=== PATIENT | female | born 1940 | race Caucasian/White ===

== ENCOUNTER 2024-04-11 08:53 | Inpatient (IN) ==
--- NOTE | 2024-02-20 13:02 | PAT Medication Instructions ---
Medication Instructions Date of Service February 20, 2024 Home Medications allopurinol 300 mg tablet 300 mg PO BID PRN gout flare up gabapentin 100 mg capsule 200 mg PO TID pantoprazole 40 mg tablet,delayed release 40 mg PO UD PRN Acid Reflux valsartan 320 mg tablet 320 mg PO QAM amlodipine 10 mg tablet 5 mg PO QAM hydrochlorothiazide 50 mg tablet 50 mg PO QAM ketoconazole 2 % topical cream 1 applic topical BID PRN Skin Irritation meclizine 25 mg tablet 25 mg PO DAILY PRN Vertigo methimazole 5 mg tablet 5 mg PO QAM metoprolol succinate 25 mg tablet,extended release 24 hr 12.5 mg PO QAM MEDICATION INSTRUCTIONS: Continue as directed ketoconazole 2 % topical cream 1 applic topical BID PRN Skin Irritation (do not apply near surgical area after bathing prior to surgery) DO NOT take the morning of surgery hydrochlorothiazide 50 mg tablet 50 mg PO QAM valsartan 320 mg tablet 320 mg PO QAM Take morning of surgery With a small sip of water, OTHERWISE NOTHING TO EAT OR DRINK AFTER MIDNIGHT: allopurinol 300 mg tablet 300 mg PO BID PRN gout flare up gabapentin 100 mg capsule 200 mg PO TID methimazole 5 mg tablet 5 mg PO QAM metoprolol succinate 25 mg tablet,extended release 24 hr 12.5 mg PO QAM pantoprazole 40 mg tablet,delayed release 40 mg PO UD PRN Acid Reflux amlodipine 10 mg tablet 5 mg PO QAM meclizine 25 mg tablet 25 mg PO DAILY PRN Vertigo Take evening before surgery allopurinol 300 mg tablet 300 mg PO BID PRN gout flare up gabapentin 100 mg capsule 200 mg PO TID Other Notes If you have any questions please call us at [phone] or [phone] or [phone] or [phone]
--- NOTE | 2024-03-05 12:26 | Anesthesiology Consultation ---
Date of Service March 05, 2024 Assessment & Plan (1) Encounter for pre-operative examination: - Infectious disease screening: Per assessment on 03/05/24: No known recent infectious disease contacts or current infectious disease symptoms. - Outpatient joint assessment: Per surgeon's paperwork, plan for patient to be done through with overnight stay post-operatively (OR made aware). If surgeon requests review for outpatient joint pathway, patient would need to be further evaluated by anesthesia team for ultimate determination. 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 On physical exam of right LE/ankle at PAT visit 03/05/24: no skin discoloration, no erythema, no warmth, no edema. Edgar's sign negative. Very mild right ankle/LE swelling compared to left. Vitals stable/unremarkable. Patient denies cardiopulmonary complaints- at baseline. Discussed red flag symptoms associated with blood clots and advised patient to proceed to ER if development of these occur. Note written to PCP regarding RLE/right ankle swelling- Awaiting response + surgeon-ordered PCP preop evaluation (Nathan Hernandez PAC/[facility]OHNS[facility], appt date TBD). Chart Review Chart Review: Patient seen in Pre Admission Testing Teaching & Discussion Pre-Anesthesia Teaching/Discussion Notes: Instructed NPO after midnight before surgery,except medications with 15 cc of water. Medication instructions provided according to the [facility] guidelines. History Surgery Operation Date: 04/11/24 09:15 Proposed Procedures p OP: Left Anterior Total Hip Replacement - Parth Shukla MD Height/Weight Height: 5 ft 7 in Weight: 103.6 kg Allergies Allergy/AdvReac Type Severity Reaction Status Date / Time hydrocodone AdvReac Intermediate Diarrhea Verified 02/29/24 16:08 codeine AdvReac Mild Nausea, Verified 02/29/24 16:08 vomiting morphine AdvReac Mild Nausea, Verified 02/29/24 16:08 vomiting Penicillins AdvReac Mild Rash Verified 02/29/24 16:08 Medications Home Medications Medication Instructions Recorded Confirmed Last Taken allopurinol 300 mg tablet 300 mg PO BID PRN gout flare up 07/10/18 02/20/24 07/25/18 08:00 gabapentin 100 mg capsule 200 mg PO TID 07/10/18 02/20/24 07/25/18 08:00 pantoprazole 40 mg tablet,delayed 40 mg PO UD PRN Acid Reflux 07/10/18 02/20/24 Unknown release valsartan 320 mg tablet 320 mg PO QAM 07/10/18 02/20/24 Unknown amlodipine 10 mg tablet 5 mg PO QAM 02/20/24 02/20/24 Unknown hydrochlorothiazide 50 mg tablet 50 mg PO QAM 02/20/24 02/20/24 Unknown ketoconazole 2 % topical cream 1 applic topical BID PRN Skin 02/20/24 02/20/24 Unknown Irritation meclizine 25 mg tablet 25 mg PO DAILY PRN Vertigo 02/20/24 02/20/24 Unknown methimazole 5 mg tablet 5 mg PO QAM 02/20/24 02/20/24 Unknown metoprolol succinate 25 mg 12.5 mg PO QAM 02/20/24 02/20/24 Unknown tablet,extended release 24 hr Past Medical History Medical History 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, asymptomatic Chronic anemia Chronic kidney disease Degenerative arthritis of left knee GERD (gastroesophageal reflux disease) Hx of gout Hypertension Hyperthyroidism Neuropathy Feet Obesity Osteoarthritis Exercise / Class Metabolic Activity III < 4 Walking/Shop/Light housework Past Family History Family History Sister Family history of reaction to anesthesia SEVERE NAUAEA AND VOMITING Son Family history of diabetes mellitus Mother Family hx of colon cancer Past Surgical History Surgical History H/O colonoscopy with polypectomy History of cataract surgery R/L History of cholecystectomy History of esophagogastroduodenoscopy (EGD) History of hysterectomy Total History of tonsillectomy History of tooth extraction History of total hip arthroplasty Right History of total knee replacement R/L Right TKA (07/26/18): SAB at L4-5 + regional at [facility] History of uterine suspension procedure X2 Nausea and vomiting after administration of anesthetic agent Past Anesthesia History No Family Hx of Anesthesia Complications and Other (Slow to wake, Awareness with Right TKA) History of PONV No Hx of Motion Sickness and History of PONV Social History Smoking Status: Former smoker Do You Dip or Chew Tobacco: No Smoking End Date: Quit 30+ years ago Hx Alcohol Use: No Hx Substance Use: No substance use type: does not use Review of Systems Patient denies chest pain, shortness of breath, dyspnea on exertion, fever, chills, cough, wheezing, palpitations. Physical Exam Vital Signs BP 135/75 P 47 - chronic bradycardia r/t beta catalino, asymptomatic TEMP 97.5 SP02 98%RA RESP 18 Physical Full cervical extension range of motion. Full TMJ range of motion. TMD 3.5 finger breaths Mallampati Score 3 Dentition: missing molars Lungs: clear throughout to auscultation Cardiac: regular rate and rhythm, no murmurs noted Spine: normal Carotid arteries: negative bruit Lower Extremities: no skin discoloration, no erythema, no warmth, no edema. Edgar's sign negative. Very mild right ankle/LE swelling compared to left. Lab Results Anesthesia Preop Results Results Anesthesia Widget: WBC 6.14 K/ul (4.8-10.8) 03/05/24 Hgb 10.3 g/dl (12.0-16.0) L 03/05/24 Hct 31.6 % (37.0-47.0) L 03/05/24 Plt 236 K/uL (130-400) 03/05/24 Na 140 mmol/L (136-145) 03/05/24 K 3.7 mmol/L (3.5-5.1) 03/05/24 Cl 105 mmol/L (98-107) 03/05/24 CO2 29 mmol/L (21-32) 03/05/24 BUN 26 mg/dl (6-23) H 03/05/24 Creat 1.20 mg/dl (0.6-1.2) 03/05/24 Glucose Level 99 mg/dl (70-99(Fasting)) 03/05/24 PT 10.3 Seconds (9.0-12.0) 03/05/24 PTT 25 Seconds (21-31) 03/05/24 INR 0.9 (0.9-1.1) 03/05/24 Urine Color Yellow 03/05/24 Urine Appearance Cloudy (Clear) A 03/05/24 Urine pH 5.5 (4.5-7.5) 03/05/24 Urine Specific [place] 1.013 (1.000-1.030) 03/05/24 Urine Protein Negative (Negative) 03/05/24 Urine Glucose (UA) Negative (Negative) 03/05/24 Urine Ketones Negative (Negative) 03/05/24 Urine Blood Negative (Negative) 03/05/24 Urine Nitrite Negative (Negative) 03/05/24 Urine Bilirubin Negative (Negative) 03/05/24 Urine Urobilinogen Negative (Negative) 03/05/24 Urine Leukocyte Esterase Trace (Negative) H 03/05/24 Urine WBC (Auto) 0-5 /hpf (0-5) 03/05/24 Urine RBC (Auto) 0-2 /hpf (0-2) 03/05/24 Urine Hyaline Casts (Auto) 0-2 /lpf (0-2) 03/05/24 Urine Epithelial Cells (Auto) 3-5 /hpf (0-2) H 03/05/24 Urine Bacteria (Auto) None Seen (None Seen) 03/05/24 Blood Type O Positive 03/05/24 Antibody Screen NEGATIVE 03/05/24 Testing Electrocardiogram Date: 06/21/23 Sinus bradycardia with first-degree AV block at 55 bpm. RBBB. Chest X-Ray Date: 06/21/23 Mild cardiomegaly. No consolidation, pleural effusion or pneumothorax. Right shoulder impingement noted. Impression: No acute abnormality. Echocardiogram Date: 05/07/19 LVEF 55-59%. Borderline increased concentric LV wall thickness. No significant valvular disease. Inconclusive diastolic function.
--- NOTE | 2024-04-10 08:09 | History & Physical Report ---
Date of Service April 10, 2024 Assessment & Plan (1) Degenerative joint disease of left hip: Plan: Left total hip replacement direct anterior approach admission patient prefers inpatient rehab [facility] History of Present Illness Chief Complaint: Left hip pain Primary Care Provider: Mukesh Cox MD Patient is an 83-year-old female with a history of osteoarthritis of the lower extremities who is previously status post right total hip replacement and left total knee replacement in the past which have been successful. She now presents with greater than 1 year history of left hip and groin pain. The pain is associated with marked decrease in range of motion and limited standing and walking tolerance. She has tried and failed both intra-articular injections and physical therapy. She has radiographic evidence of advanced arthritis of the hip and is admitted for elective hip replacement surgery. Allergies Allergy/AdvReac Type Severity Reaction Status Date / Time hydrocodone AdvReac Intermediate Diarrhea Verified 02/29/24 16:08 codeine AdvReac Mild Nausea, Verified 02/29/24 16:08 vomiting morphine AdvReac Mild Nausea, Verified 02/29/24 16:08 vomiting Penicillins AdvReac Mild Rash Verified 02/29/24 16:08 Home Medications Medication Instructions Recorded Confirmed Type allopurinol 300 mg tablet 300 mg PO BID PRN gout flare up 07/10/18 02/20/24 History gabapentin 100 mg capsule 200 mg PO TID 07/10/18 02/20/24 History pantoprazole 40 mg tablet,delayed 40 mg PO UD PRN Acid Reflux 07/10/18 02/20/24 History release valsartan 320 mg tablet 320 mg PO QAM 07/10/18 02/20/24 History amlodipine 10 mg tablet 5 mg PO QAM 02/20/24 02/20/24 History hydrochlorothiazide 50 mg tablet 50 mg PO QAM 02/20/24 02/20/24 History ketoconazole 2 % topical cream 1 applic topical BID PRN Skin 02/20/24 02/20/24 History Irritation meclizine 25 mg tablet 25 mg PO DAILY PRN Vertigo 02/20/24 02/20/24 History methimazole 5 mg tablet 5 mg PO QAM 02/20/24 02/20/24 History metoprolol succinate 25 mg 12.5 mg PO QAM 02/20/24 02/20/24 History tablet,extended release 24 hr Past Med/Surg History Problem List (Updated 04/10/24 @ 08:09 by Parth Shukla MD) Degenerative joint disease of left hip Encounter for pre-operative examination Medical History Chronic anemia Hyperthyroidism Neuropathy Feet Degenerative arthritis of left knee 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, asymptomatic Hx of gout Obesity Osteoarthritis Chronic kidney disease GERD (gastroesophageal reflux disease) Hypertension Surgical History History of esophagogastroduodenoscopy (EGD) H/O colonoscopy with polypectomy History of tonsillectomy History of tooth extraction History of cataract surgery R/L Nausea and vomiting after administration of anesthetic agent History of uterine suspension procedure X2 History of cholecystectomy History of hysterectomy Total History of total knee replacement R/L Right TKA (07/26/18): SAB at L4-5 + regional at [facility] History of total hip arthroplasty Right Family History Sister Family history of reaction to anesthesia SEVERE NAUAEA AND VOMITING Son Family history of diabetes mellitus Mother Family hx of colon cancer Social History Smoking Status: Former smoker Tobacco Type: Cigarettes Smoking End Date: Quit 30+ years ago; Second Hand Exposure: Yes (in the past); Do You Dip or Chew Tobacco: No; Hx Alcohol Use: No Hx Substance Use: No Preferred Language: Surinamese Communication Ability: Effective Documentation Manager Required: No Beliefs That Will Affect Care: Latter-Day Latter-Day Beliefs: amish Current Living Situation: Alone Feels Safe at Home: Yes Safety Concerns: Feels Safe At This Time Assistive Devices: Glasses Assistive Devices Comment: reading glasses Review of Systems Review of Systems: Hip and groin pain Physical Exam Physical Exam: Weight 102 kg BMI 35 General: Overweight female who appears to be her stated age. HEENT: NCAT, EOMI, PERRLA. Neck: Negative bruits Heart: Sinus bradycardia no murmurs or gallops Lungs: Breath sounds clear and present in all avitia Abdomen: Obese soft nontender bowel sounds positive Extremities: The left hip is 4 mm shorter than the right passive range of motion is 5 to 85 degrees flexion -10 degrees internal rotation all which reproduces groin pain. Neurological and vascular: Intact Results & Data Results & Data Vital Signs (Past 12 Hours) Blood pressure 126/66 Pulse 60
[~2024-04-11 08:53] MED LIST: BUPIVACAINE 0.5 % 5 MG/1 ML PF 10ML VIAL ONE
[2024-04-11] MEDS ORDERED: KETAMINE HCL 10MG/ML SYR ONE (09:44)
[2024-04-11] MEDS ORDERED: MIDAZOLAM HCL 1 MG/ML 2ML VIAL ONE (09:44)
[2024-04-11] MEDS ORDERED: ONDANSETRON INJ 2 MG/ML 2 ML VIAL ONE (09:45)
[2024-04-11] MEDS ORDERED: LIDOCAINE 2% 2 ML VIAL/AMP(20MG/ML) INFIL ONE (09:45)
[2024-04-11] MEDS ORDERED: GLYCOPYRROLATE 0.2 MG/ML VIAL ONE (09:45)
[2024-04-11] MEDS ORDERED: KETOROLAC 30 MG/ML VIAL ONE (09:45)
[2024-04-11] MEDS ORDERED: PROPOFOL IV EMULSION 10 MG/ML 20 ML VIAL IV ONE (09:45)
[2024-04-11] MEDS: LR 500ML BOLUS, THEN 15ML/HR IV SCH (09:58)
[2024-04-11] MEDS: CeleBREX 200 MG CAP PO SCH (09:59)
[2024-04-11] MEDS: ACETAMINOPHEN 500 MG TAB PO SCH (09:59)
[2024-04-11] MEDS: GABAPENTIN 300 MG CAP PO SCH (09:59)
[2024-04-11] MEDS: METOCLOPRAMIDE HCL 10 MG TABLET PO SCH (10:00)
[2024-04-11] MEDS: LR 60ML/HR IV SCH (10:00)
[2024-04-11] MEDS: dexAMETHasone**PF** 10 MG/ML VIAL IV SCH (10:00)
[2024-04-11] MEDS: FAMOTIDINE 20 MG TAB PO SCH (10:00)
[2024-04-11] MEDS: traMADol HCL 50 MG TABLET PO SCH (10:01)
[2024-04-11] MEDS ORDERED: ATROPINE SULFATE 0.1 MG/ML 10ML SYR IV PRN (10:25)
[2024-04-11] MEDS ORDERED: ONDANSETRON INJ 2 MG/ML 2 ML VIAL IV PRN ×2 (10:25→15:41)
[2024-04-11] MEDS ORDERED: ePHEDrine sulfate 50 MG/ML AMP IV PRN (10:25)
[2024-04-11] MEDS ORDERED: PROMETHAZINE HCL 6.25 MG in SODIUM CHLORIDE 0.9% 50 ML IV PRN (10:25)
--- NOTE | 2024-04-11 10:36 | History & Physical Bridge Note ---
Date of Service April 11, 2024 History & Physical Bridge Note I have examined the patient, reviewed the History & Physical and in the interval since the performance of the History & Physical I have noted the following changes of clinical significance: no changes noted
[2024-04-11] MEDS: TRANEXAMIC ACID 1,000 MG **IV Pre-op IV SCH (12:02)
[2024-04-11] MEDS: ceFAZolin 2000MG 2,000 MG/15 ML SYR IV SCH ×2 (12:10→19:51)
--- OUTSIDE RECORDS SUMMARY | 2024-04-11 12:34 | External Medical Summary | Summary of Care ---
Author Name Unknown Organization [facility] Address [address] [place] [address] Phone [phone] Care Team Providers Care Pheresis Nurse Name Role Phone Nathan Hernandez PA-C Primary Care Provider [phone] Reason for Visit * Reason Onset Date Comments Test Results 04/05/2024 Encounter Details Date Type Department Care Team ([facility] Contact Info) Description 04/05/2024 Telephone Family [facility] [address] [place] [address] Nathan Hernandez PA-C [address] [place] [address] Test Results Allergies Active Allergy Reactions Criticality Noted Date Comments Codeine Nausea/vomiting 08/22/2014 Morphine And Codeine 08/31/2009 Upset stomach, vomiting Penicillins 05/29/2001 documented as of this encounter (statuses as of 04/08/2024) Medications Medication Sig Dispensed Refills Start Date End Date Status Multiple Vitamins-Minerals (HAIR SKIN AND NAILS FORMULA) TABS Take 1 Tab by mouth daily. Active methIMAzole 5 MG Oral Tablet (Tapazole)Indication s:Hyperthyroidism Take 1 Tablet by mouth daily. 90 Tablet 5 08/10/2021 Active Meclizine HCl 25 MG Oral Tablet (Antivert) Take by mouth 1 Tablet every 8 hours as needed for Dizziness. 30 Tablet 03/06/2022 Active Allopurinol 100 MG Oral Tablet (Zyloprim)Indication s:Elevated uric acid in blood Take 1 Tablet (100 mg) by mouth in the morning. 30 Tablet 11 07/29/2022 Active Cholestyramine 4 GM Oral Packet (Questran) Take 1 Packet by mouth in the morning and 1 Packet before bedtime. Mix with water and drink before a meal.. 180 Packet 1 02/13/2023 Active Pantoprazole Sodium 40 MG Oral Tablet Delayed Release (Protonix) Take 1 Tablet by mouth daily as needed for Indigestion. States only takes as needed 90 Tablet 5 05/09/2023 Active Tretinoin 0.1 % External Cream APPLY TO AFFECTED AREA ON FACE TOPICALLY AT BEDTIME 45 g 7 07/31/2023 Active Valsartan 320 MG Oral Tablet (Diovan)Indications: Essential hypertension with goal blood pressure less than 140/90 Take 1 Tablet by mouth in the morning. 90 Tablet 2 07/27/2023 Active Gabapentin 100 MG Oral Capsule (Neurontin)Indicatio ns:Neuropathy,DDD (degenerative disc disease), lumbar TAKE 2 CAPSULES THREE TIMES A DAY 84 Capsule 10/25/2023 Active amLODIPine Besylate 10 MG Oral Tablet (Norvasc)Indications :HTN, goal below 140/90 TAKE ONE-HALF (1/2) TABLET DAILY 45 Tablet 1 10/19/2023 Active hydroCHLOROthiazide 50 MG Oral Tablet (Hydrodiuril) TAKE 1 TABLET IN THE MORNING 90 Tablet 1 12/14/2023 Active documented as of this encounter (statuses as of 04/08/2024) Active Problems Problem Noted Date Diagnosed Date Hyperthyroidism 07/31/2020 GERD (gastroesophageal reflux disease) 0 Stage 3b chronic kidney disease 07/20/2020 Overview: Per CKD protocol Chronic right shoulder pain 06/01/2020 BMI 35-39 ISOLATED (SEE ACTUAL BMI) 02/22/2010 Overview: Per Obesity Protocol, #19 Hip joint replacement status 08/14/2008 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 12/14/2007 Generalized hyperhidrosis 03/22/2007 HTN, goal below 140/90 10/23/2003 documented as of this encounter (statuses as of 04/08/2024) Resolved Problems Problem Noted Date Diagnosed Date Resolved Date COVID-19 virus infection 06/21/2023 Elevated troponin 06/21/2023 04/03/2024 Sore throat (viral) 06/21/2023 04/03/20 Acute respiratory failure with hypoxia 07/31/2020 08/14/2023 Pneumonia due to COVID-19 virus 07/31/2020 04/03/2024 Morbid obesity due to excess calories 02/21/2020 06/20/2023 Encounter for examination fo r normal comparison and control in clinical research program 02/15/2018 04/13/2020 Overview: DO NOT DELETE [facility] DETECT Study: Project # [id number], Cylinder Sander Operator: Sid Hernandez, PhD. SUMMARY: Goal: Establish test characteristics (sensitivity, specificity, PPV, NPV) of a circulating tumor DNA (ctDNA)-based test for cancer. Hypothesis: Circulating tumor DNA (ctDNA) and elevated protein biomarkers (together, the marker panel) can be detected in asymptomatic individuals with early cancer. Specific Aim 1: Determine the prevalence of a positive marker panel test in a prospective clinical cohort of 10,000 asymptomatic women ages 65 to 75 years. Specific Aim 2: Determine the sensitivity, specificity, positive predictive value (PPV) and negative predictive value (NPV) of a marker panel test to identify histologically proven cancers that develop within 5-years of the marker panel evaluation. CONTACTS: During normal business hours, contact study staff at ; after hours Cylinder Sander Operator via the [facility] hospital wire turning machine operator . Please contact study team before resolving/deleting from patients problem list. Study phone number: [phone]. Diagnosis changed due to Research Module. Go to Snapshot for study details. Encounter for examination fo r normal comparison and control in clinical research program 02/15/2018 05/12/2022 Overview: DO NOT DELETE - [facility] DETECT Study: Project # [id number], Cylinder Sander Operator: Jamal Dickinson, MS, MPH. SUMMARY: Goal: Establish test characteristics (sensitivity, specificity, PPV, NPV) of a circulating tumor DNA (ctDNA)-based test for cancer. - Hypothesis: Circulating tumor DNA (ctDNA) and elevated protein biomarkers (together, the marker panel) can be detected in asymptomatic individuals with early cancer. - Specific Aim 1: Determine the prevalence of a positive marker panel test in a prospective clinical cohort of 10,000 asymptomatic women ages 65 to 75 years. - Specific Aim 2: Determine the sensitivity, specificity, positive predictive value (PPV) and negative predictive value (NPV) of a marker panel test to identify histologically proven cancers that develop within 5-years of the marker panel evaluation. - CONTACTS: During normal business hours, contact study staff at ; after hours Cylinder Sander Operator via the [facility] hospital wire turning machine operator . - Please contact study team before resolving/deleting from patients problem list. Study phone number: [phone]. Diagnosis changed due to Research Module. Go to Snapshot for study details. Kidney disease, chronic, sta ge III (GFR 30-59 ml/min) 07/27/2015 07/23/2020 Overview: Per CKD protocol #1 Kidney disease, chronic, sta ge III (GFR 30-59 ml/min) 08/31/2012 02/17/2014 Kidney disease, chronic, sta ge III (GFR 30-59 ml/min) 04/01/2010 12/29/2010 Overview: Per CKD Protocol, #1 ADVANCE DIRECTIVE INFORMATION 09/26/2006 06/01/2020 Overview: Booklet given to pt before. Menopause 08/14/2017 documented as of this encounter (statuses as of 04/08/2024) Immunizations Name Administration Dates Next Due COVID-19 mRNA, LNP-s, No Pre serve, 2-Dose Series ([employer]) 07/28/2021 Pneumococcal Conjugate Vacc, 13 Valent (Prevnar) 02/07/2019 Pneumococcal Polysaccharide PPV23 (Pneumovax) 06/04/2020,06/01/2020(Deferred: Patient Refused) Season Influenza, Quad, PF, Adjuvanted, 65+ Yrs, IM (FLUAD) 06/30/2020 Seasonal Influenza, PF, 6 M & above, IM , (FluLaval or Fluzone) 08/22/2018 Seasonal Influenza, Quadriva lent Hd (Fluzone Hd) 06/29/2023,07/25/2022,05/24/2021 Seasonal Influenza, Split, I IV3, With Preserve, Inj 08/31/2012,08/31/2009(Deferred: Patient Refused) Seasonal Influenza, Trivalen t, Adjuvanted, 65+ yrs 07/02/2019 TDAP (age 10 and older)(Boostrix) 04/01/2021 documented as of this encounter Social History Tobacco Use Types Packs/Day Years Used Date Smoking Tobacco: Former Smokeless Tobacco: Never Comments:quit smoking in e Alcohol Use Standard Drinks/Week Comments Never 0 (1 standard drink = 0.6 oz pur e alcohol) AUDIT-C Answer Date Recorded Frequency of Alcohol Consumption Never 02/07/2019 Average Number of Drinks Not on file 019 Frequency of Binge Drinking Not on file 01/11 PHQ-2 Answer Date Recorded PHQ Adult Total Score 0 09/17/2020 Hunger Vital Sign Answer Date Recorded Worried About Running Out of Food in the Last Ye ar Never true 08/19/2019 Ran Out of Food in the Last Year Never true 08/19/2019 Utilities Answer Date Recorded Do you have trouble paying y our heating, water, or electric bill? (Adult - for ages 18 years and over) Not on file 02/27/2024 Is your family able to pay t he heat, water, or electric bill? (Household - for ages 0-17 years) Not on file 02/27/2024 Does your family have access to good internet? (Household - for ages 0-17 years) Not on file 02/27/2024 Social Connections Answer Date Recorded How often do you feel lonely or isolated from those around you? (Adult - for ages 18 years and over) Not on file 02/27/2024 Sex and Gender Information Value Date Recorded Sex Assigned at Female 04/22/2019 9:33 AM EDT Gender Identity Female 04/22/2019 9:33 AM EDT Sexual Orientation Straight 04/22/2019 9: 33 AM EDT Job Start Date Occupation Industry Not on file Not on file Not on file documented as of this encounter Functional Status Functional Status Response Date of Assess ment Are you deaf or do you have serious difficulty h earing? No 06/21/2023 Are you blind or do you have serious difficulty seeing, even when wearing glasses? No 06/21/2023 Do you have serious difficul ty walking or climbing stairs? (5 years old or older) No 06/21/2023 Do you have difficulty dress ing or bathing? (5 years old or older) No 06/21/2023 Because of a physical, menta l, or emotional condition, do you have difficulty doing errands alone such as visiting a doctor s office or shopping? (15 years old or older) No 06/21/20 Cognitive Status Response Date of Assessm ent Because of a physical, menta l, or emotional condition, do you have serious difficulty concentrating, remembering, or making decisions? (5 years old or older) No 06/21/2023 documented as of this encounter Miscellaneous Notes * Telephone Encounter - Debbi Castro LPN - 04/08/2024 1:39 PM EDT Pt was seen today for NV for repeat EKG, pulse, and BP. Issue below addressed. * Telephone Encounter - Didier Guadarrama PA-C - 04/05/2024 12:36 PM EDT Additional allopurinol will not help with acute gout flare, do not recommend dose increase at this time. If significant pain/swelling/redness would be best if she scheduled acute OV or be seen at convenient care to ensure proper diagnosis and treatment (gout vs. cellulitis). She should notify Ortho of concerns as this may delay her surgery. * Telephone Encounter - Izabel Hsu LPN - 04/05/2024 12:16 PM EDT Pt aware and has stopped metoprolol. Will be here on 04/08 for EKG/pulse/BP. Has an episode of gout today in right foot. Wondering if she can take her allopurinol 300mg BID. Took one this morning. Wondering what else to do. * Telephone Encounter - Didier Guadarrama PA-C - 04/05/2024 11:26 AM EDT Pre-op labs are stable. CXR still in process. Awaiting nurse visit scheduled 04/08 to recheck BP/pulse/EKG prior to providing surgical clearance recommendations. Ensure she has stopped metoprolol. * Telephone Encounter - Phylicia Bello LPN - 04/05/2024 8:53 AM EDT Please review lab results. Thank you. * Telephone Encounter - Sharron Pineda OSA - 04/05/2024 8:47 AM EDT Who is Requesting Test Results: pt Primary Care Provider : Nathan Hernnadez PA-C Tests Results Requested : lab Date of Test : 04/03 Location of Test: [place] Ordering Provider: Suzanne Guadarrama Patient has been made aware that the turnaround time for test results are typically as follows: Laboratory results = within 2-3 days ([facility]), 3-5 days (Non-[facility], ie. [facility]) Urine Cultures = within 2-3 days depending on growth within the culture Pathology results (biopsy results/PAP) = 1-2 weeks Radiology results = about 1 week Cologuard results = within 2 weeks from the shipment date COVID testing = about 24 hours documented in this encounter Plan of Treatment Upcoming Encounters Date Type Department Care Team (Late st Contact Info) Description 04/08/2024 3:00 PM EDT Appointment Radiology, [address] [place] [address] Scheduled Procedures Name Priority Associated Diagnoses Date/Ti me ESOPHAGOGASTRODUODENOSCOPY ( EGD), FLEXIBLE, TRANSORAL, DIAGNOSTIC Recall Adenomatous duodenal polyp Health Maintenance Due Date Last Done Comments Zoster Vaccines (1 of 2) 1992 COVID-19 Vaccine (2 - Pfizer risk series) 08/18/2021 07/28/2021 Depression Screening 09/17/2021 09/17/2020 Albumin/Creatinine Ratio 12/06/2022 022, 02/15/2018, 01/16/2017, Additional history exists Influenza Vaccine (FLU shot) (#1) 2024 06/29/2023, 07/25/2022, 05/24/2021, Additional history exists GFR 10/04/2024 04/03/2024, 02/10, 01/11/2024, Additional history exists CKD PHOS USE SMARTSET 27114 01/10/2025 05/0 10/2023, 06/21/2023, 03/23/2023, Additional history exists DXA Scan 03/01/2025 03/01/2018, 09/25/2001 CKD HGB USE SMARTSET 93433 04/03/202504/03, 04/03/2024, 03/05/2024, Additional history exists DTaP,Tdap,and Td Vaccines (2 - Td or Tdap) 04/01/2031 04/01/2021 Pneumococcal Vaccine: 65+ Years Completed 06/04/2020, 02/07/2019 HPV (Gardasil) Vaccine Aged Out No lo nger eligible based on patient's age to complete this topic Hepatitis B Vaccine Aged Out No longe r eligible based on patient's age to complete this topic MENINGOCOCCAL (MENACTRA/MENVEO) Aged Out No longer eligible based on patient's age to complete this topic documented as of this encounter Medical Devices Not on filedocumented as of this encounter Advance Directives * Full Code (Latest Code Status on File) Date Activated Date Inactivated Comments 06/21/2023 6:32 AM 06/22/2023 5:07 PM This order reflects the patients wishes and were consensually agreed upon. Question Answer Comments Discussion of Advance Directives occurred with: Patient Does the patient have a Living Will? No Does the patient have Health Care Power of Attor william? No * Full Code Date Activated Date Inactivated Comments 07/31/2020 9:11 AM 08/04/2020 5:55 PM This order reflects the patients wishes and were consensually agreed upon. Question Answer Comments Discussion of Advance Directives occurred with: Patient Does the patient have a Living Will? No Does the patient have Health Care Power of Attor william? No Care Teams Pheresis Nurse Relationship Specialty Start Date End Date Nathan Hernandez PA-C [address] [place], [place] [address]SUDHIR rodriguez [phone] PCP - General Physician District Loss Prevention Manager 08/14/23 documented as of this encounter
--- OUTSIDE RECORDS SUMMARY | 2024-04-11 12:34 | External Medical Summary | Summary of Care ---
Author Name Unknown Organization [facility] Address [address] [place] [address] Phone [phone] Care Team Providers Care Wildlife Conservation Professor Name Role Phone Nathan Hernandez PA-C Primary Care Provider [phone] Encounter Details Date Type Department Care Team (Latest Contact Info) Description 04/08/2024 2:58 PM EDT - 04/08/2024 11:59 PM EDT Hospital Encounter Radiology, [facility] [address] [place] [address] Arrived Discharge Disposition: Home - Self Care Allergies Active Allergy Reactions Criticality Noted Date Comments Codeine Nausea/vomiting 08/22/2014 Morphine And Codeine 08/31/2009 Upset stomach, vomiting Penicillins 05/29/2001 documented as of this encounter (statuses as of 04/09/2024) Medications Medication Sig Dispensed Refills Start Date [...] AT BEDTIME 45 g 7 07/31/2023 Active Gabapentin 100 MG Oral Capsule (Neurontin)Indicatio ns:Neuropathy,DDD (degenerative disc disease), lumbar TAKE 2 CAPSULES THREE TIMES A DAY 84 Capsule 10/25/2023 Active amLODIPine Besylate 10 MG Oral Tablet (Norvasc)Indications :HTN, goal below 140/90 TAKE ONE-HALF (1/2) TABLET DAILY 45 Tablet 1 10/19/2023 Active hydroCHLOROthiazide 50 MG Oral Tablet (Hydrodiuril) TAKE 1 TABLET IN THE MORNING 90 Tablet 1 12/14/2023 Active Valsartan 320 MG Oral Tablet (Diovan)Indications: Essential hypertension with goal blood pressure less than 140/90 TAKE 1 TABLET IN THE MORNING 90 Tablet 1 04/08/2024 Active documented as of this encounter (statuses as of 04/09/2024) Active Problems Problem Noted Date Diagnosed Date [...] as of this encounter (statuses as of 04/09/2024) Resolved Problems Problem Noted Date Diagnosed Date Resolved Date COVID-19 virus infection 06/21/2023 Elevated troponin 06/21/2023 04/03/2024 Sore throat (viral) 06/21/2023 04/03/20 Acute respiratory failure with hypoxia 07/31/2020 08/14/2023 Pneumonia due to COVID-19 virus 07/31/2020 04/03/2024 Morbid obesity due to excess calories 02/21/2020 06/20/2023 Encounter for examination fo r normal comparison and control in clinical research program 02/15/2018 04/13/2020 Overview: DO NOT DELETE [facility] DETECT Study: Project # [id number], Junior Systems Engineer: Sid Hernandez, PhD. SUMMARY: Goal: Establish test [...] contact study staff at ; after hours Junior Systems Engineer via the [facility] hospital loader operator supervisor . Please contact study team before resolving/deleting from patients problem list. Study phone number: [phone]. Diagnosis changed due to Research Module. Go to Snapshot for study details. Encounter for examination fo r normal comparison and control in clinical research program 02/15/2018 05/12/2022 Overview: DO NOT DELETE - [facility] DETECT Study: Project # [id number], Junior Systems Engineer: Jamal Dickinson, MS, MPH. SUMMARY: Goal: Establish [...] contact study staff at ; after hours Junior Systems Engineer via the [facility] hospital loader operator supervisor . - Please contact study team before resolving/deleting from patients problem list. Study phone number: [phone]. Diagnosis changed due to Research Module. Go [...] as of this encounter (statuses as of 04/09/2024) Immunizations Name Administration Dates Next Due COVID-19 mRNA, LNP-s, No Pre serve, 2-Dose Series ([employer]) 07/28/2021 Pneumococcal Conjugate Vacc, 13 Valent (Prevnar) [...] (15 years old or older) No 06/21/20 23 Cognitive Status Response Date of Assessm ent Because of a physical, menta l, or emotional condition, do you have serious difficulty concentrating, remembering, or making decisions? (5 years old or older) No 06/21/2023 documented as of this encounter Plan of Treatment Scheduled Procedures Name Priority Associated Diagnoses Date/Ti [...] Additional history exists CKD PHOS USE SMARTSET 73208 01/10/2025 05/0 10/2023, 06/21/2023, 03/23/2023, Additional history exists DXA Scan 03/01/2025 03/01/2018, 09/25/2001 CKD HGB USE SMARTSET 74537 04/03/202504/03, 04/03/2024, 03/05/2024, Additional history exists DTaP,Tdap,and [...] Not on filedocumented as of this encounter Procedures Procedure Name Priority Date/Time Associated Diagnosis Comments VASC DUPLEX VENOUS LE UNILAT STAT 04/08/2024 3:29 PM EDT Leg edema, right documented in this encounter Results * VASC DUPLEX VENOUS LE UNILAT (04/08/2024 3:29 PM EDT) Anatomical Region Laterality Modality Lower Extremity, Vascular Ultras ound 04/08/2024 3:06 PM EDT Impressions 04/08/2024 3:52 PM EDT IMPRESSION: 1. No evidence of venous thrombosis in the right lower extremity. THIS DOCUMENT HAS BEEN ELECTRONICALLY SIGNED BY JUAN CROUCH MD Narrative 04/08/2024 3:52 PM EDT PROCEDURE INFORMATION: Exam: US Duplex Right Lower Extremity Veins, Limited Exam date and time: 04/08/2024 3:06 PM Age: 83 years old Clinical indication: Localized edema; Additional info: RT leg swelling TECHNIQUE: Imaging protocol: Real-time duplex ultrasound of the right extremity with 2-D glass scale, color Doppler flow and spectral waveform analysis including responses to compression and other maneuvers (when performed) with image documentation. Limited exam was focused on the right lower extremity veins. COMPARISON: US RENAL 03/12/2021 11:33 AM FINDINGS: Right deep veins: The deep venous system of the right lower extremity is evaluated from the level of the common femoral vein to the proximal calf. There is normal compressibility and augmentation of the common femoral vein, superficial femoral vein and popliteal vein. The proximal posterior tibial vein and peroneal veins are unremarkable. Superficial veins: The proximal greater saphenous vein is unremarkable. Soft tissues: No abnormal soft tissue fluid collections are evident to suggest abscess or hematoma. No popliteal cyst is identified. Procedure Note Juan Crouch MD - 04/08/2024 PROCEDURE INFORMATION: Exam: US Duplex Right Lower Extremity Veins, Limited Exam date and time: 04/08/2024 3:06 PM Age: 83 years old Clinical indication: Localized edema; Additional info: RT leg swelling TECHNIQUE: Imaging protocol: Real-time duplex ultrasound of the right extremity with2-D glass scale, color Doppler flow and spectral waveform analysis including responses to compression and other maneuvers (when performed) with image documentation. Limited exam was focused on the right lower extremityveins. COMPARISON: US RENAL 03/12/2021 11:33 AM FINDINGS: Right deep veins: The deep venous system of the right lower extremity is evaluated from the level of the common femoral vein to the proximal calf. There is normal compressibility and augmentation of the common femoralvein, superficial femoral vein and popliteal vein. The proximal posteriortibial vein and peroneal veins are unremarkable. Superficial veins: The proximal greater saphenous vein is unremarkable. Soft tissues: No abnormal soft tissue fluid collections are evident tosuggest abscess or hematoma. No popliteal cyst is identified. IMPRESSION IMPRESSION: 1. No evidence of venous thrombosis in the right lower extremity. THIS DOCUMENT HAS BEEN ELECTRONICALLY SIGNED BY JUAN CROUCH MD Didier Guadarrama PA-C RAD VASCULAR documented in this encounter Advance Directives * Full Code [...] Power of Attor william? No Care Teams Wildlife Conservation Professor Relationship Specialty Start Date End Date Nathan Hernandez PA-C [address] [place] [id number] PCP - General Physician Regulatory Process Manager 08/14/23 documented as of this encounter
--- OUTSIDE RECORDS SUMMARY | 2024-04-11 12:34 | External Medical Summary | Summary of Care ---
Author Name Unknown Organization [facility] Address [address] [place] [address] Phone [phone] Care Team Providers Care Legal Instruments Examiner Name Role Phone Nathan Hernandez PA-C Primary Care Provider [phone] Reason for Visit * Reason Comments pre-op exam Patient is here toda y for a preop visitPatient is having left hip surgery with Dr. [facility] in [facility] Surgery is scheduled April 11 Patient would like to have her medications checked to see if any need refills added to them Patient states no other concerns today Encounter Details Date Type Department Care Team (Latest Contact Info) Description 04/03/2024 12:20 PM EDT Office Visit [facility] [address] [facility] [place] [address] Didier Guadarrama PA-C [address] [place] [id number] Preop examination*; Osteoarthritis of left hip, unspecified osteoarthritis type; Bradycardia; Stage 3b chronic kidney disease Allergies Active Allergy Reactions Criticality Noted Date Comments Codeine Nausea/vomiting 08/22/2014 Morphine And Codeine 08/31/2009 Upset stomach, vomiting Penicillins 05/29/2001 documented as of this encounter (statuses as of 04/08/2024) Medications Medication Sig Dispensed Refills Start Date End Date Status Multiple Vitamins-Minerals (HAIR SKIN AND NAILS FORMULA) TABS Take 1 Tab by mouth daily. Active methIMAzole 5 MG Oral Tablet (Tapazole)Indicati ons:Hyperthyroidis m Take 1 Tablet by mouth daily. 90 Tablet 5 11/30/202 1 Active Meclizine HCl 25 MG Oral Tablet (Antivert) Take by mouth 1 Tablet every 8 hours as needed for Dizziness. 30 Tablet 2 Active Allopurinol 100 MG Oral Tablet (Zyloprim)Indicati ons:Elevated uric acid in blood Take 1 Tablet (100 mg) by mouth in the morning. 30 Tablet 11 2 Active Cholestyramine 4 GM Oral Packet (Questran) Take 1 Packet by mouth in the morning and 1 Packet before bedtime. Mix with water and drink before a meal.. 180 Packet 1 3 Active Pantoprazole Sodium 40 MG Oral Tablet Delayed Release (Protonix) Take 1 Tablet by mouth daily as needed for Indigestion. States only takes as needed 90 Tablet 5 3 Active Tretinoin 0.1 % External Cream APPLY TO AFFECTED AREA ON FACE TOPICALLY AT BEDTIME 45 g 7 3 Active Gabapentin 100 MG Oral Capsule (Neurontin)Indicat ions:Neuropathy,DD D (degenerative disc disease), lumbar TAKE 2 CAPSULES THREE TIMES A DAY 84 Capsule 4 Active amLODIPine Besylate 10 MG Oral Tablet (Norvasc)Indicatio ns:HTN, goal below 140/90 TAKE ONE-HALF (1/2) TABLET DAILY 45 Tablet 1 4 Active hydroCHLOROthiazid e 50 MG Oral Tablet (Hydrodiuril) TAKE 1 TABLET IN THE MORNING 90 Tablet 1 4 Active Zoster Vac Recomb Adjuvanted 50 MCG/0.5ML Intramuscular Suspension Reconstituted (SHINGRIX)Indicati ons:Need for shingles vaccine Inject 0.5 mL into a large muscle now and repeat dose in 60 to 180 days 1 Each 1 0 04/03/20 24 Discontinued(Pat ient preference/disco ntinuation) Valsartan 320 MG Oral Tablet (Diovan)Indication s:Essential hypertension with goal blood pressure less than 140/90 Take 1 Tablet by mouth in the morning. 90 Tablet 2 3 04/08/20 24 Discontinued Metoprolol Succinate ER 25 MG Oral Tablet Extended Release 24 Hour (toPROL XL) TAKE ONE-HALF (1/2) TABLET IN THE MORNING 45 Tablet 2 3 04/03/20 24 Discontinued documented as of this encounter (statuses as [...] program 02/15/2018 04/13/2020 Overview: DO NOT DELETE [facility] DETECT Study: Project # [id number], Bioinformatics Assistant: Sid Hernandez, PhD. SUMMARY: Goal: Establish test [...] contact study staff at ; after hours Bioinformatics Assistant via the [facility] dough mixing machine operator . Please contact study team before resolving/deleting from patients problem list. Study phone number: [phone]. Diagnosis changed due to Research Module. Go to Snapshot for study details. Encounter for examination fo r normal comparison and control in clinical research program 02/15/2018 05/12/2022 Overview: DO NOT DELETE - [facility]UV Study: Project # [id number], Bioinformatics Assistant: Jamal Dickinson, MS, MPH. SUMMARY: Goal: Establish [...] contact study staff at ; after hours Bioinformatics Assistant via the [facility] dough mixing machine operator . - Please contact study team before resolving/deleting from patients problem list. Study phone number: [phone]. Diagnosis changed due to Research Module. Go [...] mRNA, LNP-s, No Pre serve, 2-Dose Series ([employer]) 07/28/2021 Pneumococcal Conjugate Vacc, 13 Valent (Prevnar) [...] on file documented as of this encounter Last Filed Vital Signs Vital Sign Reading Time Taken Comments Blood Pressure 126/66 04/03/2024 12:46 PM EDT Pulse 84 04/03/2024 12:46 PM EDT Temperature 36.3 C (97.3 F) 04/03/2024 1 2:46 PM EDT Respiratory Rate 18 04/03/2024 12:4 6 PM EDT Oxygen Saturation 97% 04/03/2024 12: 46 PM EDT Inhaled Oxygen Concentration - - Weight 101.7 kg (224 lb 3.2 oz) 024 12:46 PM EDT Height 170.2 cm (5' 7") 04/03/2024 12:4 6 PM EDT Body Mass Index 35.11 04/03/2024 12:46 PM EDT documented in this encounter Functional Status Functional Status Response [...] No 06/21/2023 documented as of this encounter Nursing Notes * Sechrist, Marti Raynae, CCMA - 04/03/2024 12:46 PM EDT The patient has been properly identified by confirmation of name and date of . Chief Complaint Patient presents with pre-op exam Patient is here today for a preop visit Patient is having left hip surgery with Dr. Shukla in [place] [facility] Surgery is scheduled April 11 Patient would like to have her medications checked to see if any need refills added to them Patient states no other concerns today documented in this encounter Plan of Treatment Scheduled Procedures [...] Additional history exists CKD PHOS USE SMARTSET 87721 01/10/2025 05/0 10/2023, 06/21/2023, 03/23/2023, Additional history exists DXA Scan 03/01/2025 03/01/2018, 09/25/2001 CKD HGB USE SMARTSET 44885 04/03/202504/03, 04/03/2024, 03/05/2024, Additional history exists DTaP,Tdap,and [...] Procedure Name Priority Date/Time Associated Diagnosis Comments XR CHEST 2 VIEWS Routine 04/03/2024 1:38 PM EDT Preop examination documented in this encounter Results * EKG (04/08/2024 11:36 AM EDT) 04/08/2024 11:3 6 AM EDT Narrative Procedure Note Fortino Larry DO - 04/08/2024 11:36 AM EDT REASON FOR STUDY: PREOP CONCLUSIONS: Sinus bradycardia with 1st degree AV block Right bundle branch block Abnormal ECG When compared with ECG of 03-Apr-2024 12:26, No significant change was found Ventricular Rate: 54 Atrial Rate: 54 VA Interval: 256 QRS Duration: 152 QT/QTc: 452/428 ms P-R-T [place]: 18 : -6 : -14 degrees Didier Guadarrama PA-C EKG [facility] * (ABNORMAL) COMPREHENSIVE METABOLIC PANEL (04/03/2024 1:42 PM EDT) BUN 28(H) 6 - 20 mg/dL 04/03/2024 9:52 PM EDT [facility] Creatinine 1.4(H) 0.5 - 1.0 mg/dL 04/03/2024 9:52 PM EDT [facility] Estimated Glomerular Filtration Rate 39(L) >=60 mL/min 04/03/2024 9:52 PM EDT [facility] Comment:eGFR is calculated b ased on the CKD-EPI 2020 equation. Sodium 141 135 - 146 mmol/L 04/03/2024 9:52 PM EDT [facility] Potassium 3.8 3.5 - 5.1 mmol/L 04/03/2024 9:52 PM EDT [facility] Chloride 103 98 - 107 mmol/L 04/03/2024 9:52 PM EDT [facility] CO2 26 22 - 32 mmol/L 04/03/2024 9:52 PM EDT [facility] Anion Gap 12 7 - 15 mmol/L 04/03/2024 9:52 PM EDT [facility] Glucose 95 70 - 120 mg/dL 04/03/2024 9:52 PM EDT [facility] Albumin 3.9 3.8 - 5.0 g/dL 04/03/2024 9:52 PM EDT [facility] AST 18 10 - 35 U/L 04/03/2024 9:52 PM EDT [facility] Alkaline Phosphatase 132(H) 35 - 130 U/L 04/03/2024 9:52 PM EDT [facility] Bilirubin, Total 0.3 <=1.2 mg/dL 04/03/2024 9:52 PM EDT [facility] Calcium 9.0 8.4 - 10.2 mg/dL 04/03/2024 9:52 PM EDT [facility] Protein 6.3 6.0 - 8.3 g/dL 04/03/2024 9:52 PM EDT [facility] ALT 9(L) 10 - 35 U/L 04/03/2024 9:52 PM EDT [facility] Blood Venous blood specimen / Unknown Venipuncture / Unknown 04/03/2024 1:42 PM EDT 04/03/2024 1:42 PM EDT Didier Guadarrama PA-C LAB BLOOD ORDERAB LES Performing Organization Address City/State/[facility] Co de Phone Number [facility]AT[facility] [address] [place] [address] * XR CHEST 2 VIEWS (04/03/2024 1:38 PM EDT) Anatomical Region Laterality Modality Chest Digital Radiogra phy 04/05/2024 1:17 PM EDT Impressions 04/05/2024 1:14 PM EDT IMPRESSION No acute cardiopulmonary disease. Narrative 04/05/2024 1:14 PM EDT EXAM XR CHEST 2 VIEWS - 04/03/2024 1:38 pm HISTORY Preop TECHNIQUE PA and lateral views of the chest were obtained. COMPARISON Chest radiographs of 04/03/2024. FINDINGS LINES/DEVICES:None. CARDIOMEDIASTINAL SILHOUETTE: Within normal limits. PLEURA: Unremarkable. LUNGS: No opacities are seen. CHEST WALL/BONES: Degenerative changes are seen in the spine.. Procedure Note Isis Babcock MD - 04/05/2024 EXAM XR CHEST 2 VIEWS - 04/03/2024 1:38 pm HISTORY Preop TECHNIQUE PA and lateral views of the chest were obtained. COMPARISON Chest radiographs of 04/03/2024. FINDINGS LINES/DEVICES:None. CARDIOMEDIASTINAL SILHOUETTE: Within normal limits. PLEURA: Unremarkable. LUNGS: No opacities are seen. CHEST WALL/BONES: Degenerative changes are seen in the spine.. IMPRESSION IMPRESSION No acute cardiopulmonary disease. Didier Guadarrama PA-C RADIOLOGY ([facility]) * EKG (04/03/2024 12:26 PM EDT) 04/03/2024 12:2 6 PM EDT Narrative Procedure Note Iban Anderson DO - 04/03/2024 12:26 PM EDT REASON FOR STUDY: PRE-OP CONCLUSIONS: Marked sinus bradycardia with 1st degree AV block Right bundle branch block Abnormal ECG When compared with ECG of 21-Jun-2023 04:00, T wave inversion now evident in Inferior leads Ventricular Rate: 44 Atrial Rate: 44 VA Interval: 280 QRS Duration: 152 QT/QTc: 482/412 ms P-R-T [place]: 63 : -7 : -6 degrees Didier Guadarrama PA-C [facility]KG [facility] documented in this encounter Visit Diagnoses Diagnosis Preop examination- Primary Preoperative examination, unspecified Osteoarthritis of left hip, unspecified osteoarthritis type Bradycardia Other specified cardiac dysrhythmias Stage 3b chronic kidney disease Preop examination Preoperative examination, unspecified Preop examination Preoperative examination, unspecified documented in this encounter Advance Directives * [...] Power of Attor william? No Care Teams Legal Instruments Examiner Relationship Specialty Start Date End Date Nathan Hernandez PA-C [address] [place] [address] [place] [id number] PCP - General Physician It Service Delivery Manager 08/14/23 documented as of this encounter
--- OUTSIDE RECORDS SUMMARY | 2024-04-11 12:34 | External Medical Summary | Summary of Care ---
Author Name Unknown Organization [facility] Address [address] [place] [address] Phone [phone] Care Team Providers Care [employer] Hazmat Tanker Driver Name Role Phone Nathan June PA-C Primary Care Provider [phone] Reason for Visit * Reason Comments eRx-Medication Refill Encounter Details Date Type Department Care Team ([facility] Contact Info) Description 04/08/2024 Refill Family Practice [facility] [address] [place] [address] Mukesh Cox MD [address] [place] [address] Essential hypertension with goal blood pressure less than 140/90 Allergies Active Allergy Reactions Criticality Noted Date [...] 03/06/2022 Active Allopurinol 100 MG Oral Tablet (Zyloprim)Indicati [...] 07/31/2023 Active Gabapentin 100 MG Oral Capsule (Neurontin)Indicat ions:Neuropathy,DD D (degenerative disc disease), lumbar TAKE 2 CAPSULES THREE TIMES A DAY 84 Capsule 10/25/2023 Active amLODIPine Besylate 10 MG Oral Tablet (Norvasc)Indicatio ns:HTN, goal below 140/90 TAKE ONE-HALF (1/2) TABLET DAILY 45 Tablet 1 10/19/2023 Active hydroCHLOROthiazid e 50 MG Oral Tablet (Hydrodiuril) TAKE 1 TABLET IN THE MORNING 90 Tablet 1 12/14/2023 Active Valsartan 320 MG Oral Tablet (Diovan)Indication s:Essential hypertension with goal blood pressure less than 140/90 TAKE 1 TABLET IN THE MORNING 90 Tablet 1 04/08/2024 Active Valsartan 320 MG Oral Tablet (Diovan)Indication s:Essential hypertension with goal blood pressure less than 140/90 Take 1 Tablet by mouth in the morning. 90 Tablet 2 07/27/2023 4 Discontinued documented as of this encounter (statuses [...] program 02/15/2018 04/13/2020 Overview: DO NOT DELETE [facility] DETECT Study: Project # [id number], Director Foundation: Sid Hernandez, PhD. SUMMARY: Goal: Establish test [...] contact study staff at ; after hours Director Foundation via the [facility] brim pouncer machine operator . Please contact study team before resolving/deleting from patients problem list. Study phone number: [phone]. Diagnosis changed due to Research Module. Go to Snapshot for study details. Encounter for examination fo r normal comparison and control in clinical research program 02/15/2018 05/12/2022 Overview: [facility] NOT DELETE [facility] DETECT Study: Project # [id number], Director Foundation: Jamal Dickinson, MS, MPH. SUMMARY: Goal: Establish [...] contact study staff at ; after hours Director Foundation via the [facility] brim pouncer machine operator . - Please contact study team before resolving/deleting from patients problem list. Study phone number: [phone]. Diagnosis changed due to Research Module. Go [...] mRNA, LNP-s, No Pre serve, 2-Dose Series ([employer]) 07/28/2021 Pneumococcal Conjugate Vacc, 13 Valent (Prevnar) [...] encounter Miscellaneous Notes * Telephone Encounter - Fabricio Villarreal RPh - 04/08/2024 6:00 PM EDT * Telephone Encounter - Fabricio Villarreal RPh - 04/08/2024 6:00 PM EDTSigned Prescriptions: Disp Refills Valsartan 320 MG Oral Tablet (Diovan) 90 Tab*1 Sig: TAKE 1 TABLET IN THE MORNING Authorizing Provider: NATHAN JUNE Ordering User: FABRICIO VILLARREAL documented in this encounter Plan of Treatment [...] Additional history exists CKD PHOS USE SMARTSET 57365 01/10/2025 05/0 10/2023, 06/21/2023, 03/23/2023, Additional history exists DXA Scan 03/01/2025 03/01/2018, 09/25/2001 CKD HGB USE SMARTSET 73701 04/03/202504/03, 04/03/2024, 03/05/2024, Additional history exists DTaP,Tdap,and [...] Not on filedocumented as of this encounter Visit Diagnoses Diagnosis Essential hypertension with goal blood pressure less than 140/90 documented in this encounter Advance Directives * [...] Power of Attor william? No Care Teams [employer] Hazmat Tanker Driver Relationship Specialty Start Date End Date Nathan June PA-C [address] [place] [address] [place] [address] PCP - General Physician Fitness Technician 08/14/23 documented as of this encounter
--- OUTSIDE RECORDS SUMMARY | 2024-04-11 12:34 | External Medical Summary | Summary of Care ---
Author Name Unknown Organization [facility] Address [address] [place] [address] Phone [phone] Care Team Providers Care Test Rack Operator Name Role Phone Nathan Hernandez PA-C Primary Care Provider [phone] Reason for Visit * Reason Onset Date Comments Advice 04/09/2024 Encounter Details Date Type Department Care Team ([facility] Contact Info) Description 04/09/2024 Telephone Family [facility] [address] [place] [address] Didier Guadarrama PA-C [address] [place] [address] Advice Allergies Active Allergy Reactions Criticality Noted Date [...] program 02/15/2018 04/13/2020 Overview: DO NOT DELETE [employer] DETECT Study: Project # [id number], Business Unit Controller: Sid Hernandez, PhD. SUMMARY: Goal: Establish test [...] contact study staff at ; after hours Business Unit Controller via the [facility] supervisor network control operators . Please contact study team before resolving/deleting from patients problem list. Study phone number: [phone]. Diagnosis changed due to Research Module. Go to Snapshot for study details. Encounter for examination fo r normal comparison and control in clinical research program 02/15/2018 05/12/2022 Overview: DO NOT DELETE - [employer] [facility] DETECT Study: Project # [id number], Business Unit Controller: Jamal Dickinson, MS, MPH. SUMMARY: Goal: Establish [...] contact study staff at ; after hours Business Unit Controller via the [facility] hospital supervisor network control operators . - Please contact study team before resolving/deleting from patients problem list. Study phone number: [phone]. Diagnosis changed due to Research Module. Go [...] mRNA, LNP-s, No Pre serve, 2-Dose Series ([employer]) 07/28/2021 Pneumococcal Conjugate Vacc, 13 Valent (Prevnar) [...] Former Smokeless Tobacco: Never Comments:quit smoking in lat e Alcohol Use Standard Drinks/Week Comments Never [...] encounter Miscellaneous Notes * Telephone Encounter - Lloyd Blanco OSA - 04/09/2024 2:17 PM EDT Patient has been notified of the message. Patient has no further questions. * Telephone Encounter - Glory Elizabeth OSA - 04/09/2024 1:32 PM EDT Preop clearance faxed. * Telephone Encounter - Didier Guadarrama PA-C - 04/09/2024 9:46 AM EDT Please notify patient that U/S for DVT was negative. Fax form in my out-box along with pre-op OV note (once MD co-signed), EKG, CXR, vascular duplex, CBC & CMP labs to U for surgery date 04/11/24. documented in this encounter Plan of Treatment [...] Additional history exists CKD PHOS USE SMARTSET 29935 01/10/2025 05/0 10/2023, 06/21/2023, 03/23/2023, Additional history exists DXA Scan 03/01/2025 03/01/2018, 09/25/2001 CKD HGB USE SMARTSET 33075 04/03/202504/03, 04/03/2024, 03/05/2024, Additional history exists DTaP,Tdap,and [...] Power of Attor william? No Care Teams Test Rack Operator Relationship Specialty Start Date End Date Nathan Hernandez PA-C [address] [place] [address] PCP - General Physician Environmental Department Manager 08/14/23 documented as of this encounter
[2024-04-11] MEDS ORDERED: ePHEDrine sulfate 50 MG/5 ML SYR ONE (12:35)
--- OUTSIDE RECORDS SUMMARY | 2024-04-11 12:35 | External Medical Summary ---
Author Name Unknown Address Unknown Organization K01:LABORATORY [facility] - [address] [place] [address] Laboratory Report Ordering Provider Test Date Status KEVIN MACIEL 04/03/2024 13:42:48 Final Observation Date Value Abnormality Reference (Units ) Status TSH 04/03/2024 13:42:48 2.75 0.27-4.20 (uIU/mL) Final Performing Location [facility] - [address] [place] [address]
--- OUTSIDE RECORDS SUMMARY | 2024-04-11 12:35 | External Medical Summary | Summary of Care ---
Author Name Unknown Organization [facility] Address [address] [place] [address] Phone [phone] Care Team Providers Care Interior Plant Caretaker Name Role Phone Nathan Hernandez PA-C Primary Care Provider [phone] Reason for Visit * Reason Comments EKG Blood Pressure Check Encounter Details Date Type Department Care Team ([facility] Contact Info) Description 04/08/2024 12:00 PM EDT Nurse Only Ancillary [address] [address] [place], Nurse [facility] [address] [address] EKG; Blood Pressure Check Allergies Active Allergy Reactions Criticality Noted Date [...] program 02/15/2018 04/13/2020 Overview: DO NOT DELETE [email or web address] DETECT Study: Project # [id number], Display Mechanic: Sid Hernandez, PhD. SUMMARY: Goal: Establish test [...] contact study staff at ; after hours Display Mechanic via the [facility] dowel inserting machine operator . Please contact study team before resolving/deleting from patients problem list. Study phone number: [phone]. Diagnosis changed due to Research Module. Go to Snapshot for study details. Encounter for examination fo r normal comparison and control in clinical research program 02/15/2018 05/12/2022 Overview: DO NOT DELETE - [email or web address] DETECT Study: Project # [id number], Display Mechanic: Jamal Dickinson, MS, MPH. SUMMARY: Goal: Establish [...] contact study staff at ; after hours Display Mechanic via the [facility] hospital dowel inserting machine operator . - Please contact study team before resolving/deleting from patients problem list. Study phone number: [phone]. Diagnosis changed due to Research Module. Go [...] mRNA, LNP-s, No Pre serve, 2-Dose Series ([employer]) 07/28/2021 Pneumococcal Conjugate Vacc, 13 Valent (Prevnar) [...] Former Smokeless Tobacco: Never Comments:quit smoking in Alcohol Use Standard Drinks/Week Comments Never 0 [...] Sign Reading Time Taken Comments Blood Pressure 128/62 04/08/2024 12:22 PM EDT Pulse 54 04/08/2024 12:22 PM EDT Temperature - - Respiratory Rate - - Oxygen Saturation 99% 04/08/2024 12:22 PM EDT Inhaled Oxygen Concentration - - Weight - - Height - - Body Mass Index - - documented in this encounter Functional Status Functional [...] No 06/21/2023 documented as of this encounter Progress Notes * Debbi Castro LPN - 04/08/2024 12:19 PM EDT Pt has blood work on Monday R knee pain and swollen foot Took allopurinol and taking tylenol Stopped metoprolol Keyanna Fajardo presented for blood pressure check per provider orders. The blood pressure was obtained using the left arm in the sitting position using a adult large cuff. The results were charted in Vital Signs. BP Readings from Last 3 Encounters: 04/08/24 128/62 04/03/24 126/66 01/11/24 128/68 BP 128/62 (BP Site: Left Arm, BP Position: Sitting, BP Cuff Size: Large) | Pulse 54 | SpO2 99% Patient denies headache, pressure in head, lightheadedness. Did patient take medications today? No, stopped metoprolol per Janell Guadarrama. Patient was referred to Janell Landin PA-C for further evaluation. documented in this encounter Miscellaneous Notes * Addendum Note - Janell Guadarrama PA-C - 04/08/2024 12:43 PM EDTAddended by: JANELL GUADARRAMA on: 04/08/2024 12:43 PM Modules accepted: Orders documented in this encounter Plan of Treatment Scheduled Orders Name Type Priority Associated Diagnoses Orde r Schedule VASC DUPLEX VENOUS LE UNILAT Medical Imaging STAT Leg edema, right Ordered: 04/08/2024 Scheduled Procedures Name Priority Associated Diagnoses Date/Ti [...] Additional history exists CKD PHOS USE SMARTSET 51791 01/10/2025 05/0 10/2023, 06/21/2023, 03/23/2023, Additional history exists DXA Scan 03/01/2025 03/01/2018, 09/25/2001 CKD HGB USE SMARTSET 03975 04/03/202504/03, 04/03/2024, 03/05/2024, Additional history exists DTaP,Tdap,and [...] as of this encounter Visit Diagnoses Diagnosis Leg edema, right- Primary Edema documented in this encounter Advance Directives * [...] Power of Attor william? No Care Teams Interior Plant Caretaker Relationship Specialty Start Date End Date Nathan Hernandez PA-C [address] [place], [place] [address] rodriguez [address] PCP - General Physician Mushroom Farmer 08/14/23 documented as of this encounter"
--- OUTSIDE RECORDS SUMMARY | 2024-04-11 12:35 | External Medical Summary ---
Author Name Unknown Address Unknown Organization K01:LABORATORY [facility] - [address] [place] [address] Laboratory Report Ordering Provider Test Date Status KEVIN MACIEL 04/03/2024 13:42:48 Final Observation Date Value Abnormality Reference (Units ) Status Folic Acid 04/03/2024 13:42:48 8.8 >4.5 (ng/ mL) Final Performing Location [facility] - [address] [place] [address]
--- OUTSIDE RECORDS SUMMARY | 2024-04-11 12:35 | External Medical Summary | Summary of Care ---
Author Name Unknown Organization [facility] Address [address] [place] [address] Phone [phone] Care Team Providers Care Aerial Applicator Pilot Name Role Phone Nathan Hernandez PA-C Primary Care Provider [phone] Encounter Details Date Type Department Care Team ([facility] Contact Info) Description 03/07/2024 Orders Only Family Practice [facility] [address] [facility] [place] [phone] Nathan Hernandez PA-C [address] [place] [address] Allergies Active Allergy Reactions Criticality Noted Date Comments Codeine Nausea/vomiting 08/22/2014 Morphine And Codeine 08/31/2009 Upset stomach, vomiting Penicillins 05/29/2001 documented as of this encounter (statuses as of 03/07/2024) Medications Medication Sig Dispensed Refills Start Date End Date Status Multiple Vitamins-Minerals (HAIR SKIN AND NAILS FORMULA) TABS Take 1 Tab by mouth daily. Active Zoster Vac Recomb Adjuvanted 50 MCG/0.5ML Intramuscular Suspension Reconstituted (SHINGRIX)Indication s:Need for shingles vaccine Inject 0.5 mL into a large muscle now and repeat dose in 60 to 180 days 1 Each 1 08/20/2020 Active Additional Information Patient not taking.Reported on 05/09/2023 methIMAzole 5 MG Oral Tablet (Tapazole)Indication s:Hyperthyroidism [...] a meal.. 180 Packet 1 02/13/2023 Active Additional Information Patient not taking.Reported on 01/11/2024 Pantoprazole Sodium 40 MG Oral Tablet Delayed [...] the morning. 90 Tablet 2 07/27/2023 Active Metoprolol Succinate ER 25 MG Oral Tablet Extended Release 24 Hour (toPROL XL) TAKE ONE-HALF (1/2) TABLET IN THE MORNING 45 Tablet 2 08/07/2023 Active Gabapentin 100 MG Oral Capsule (Neurontin)Indicatio [...] as of this encounter (statuses as of 03/07/2024) Active Problems Problem Noted Date Diagnosed Date COVID-19 virus infection 06/21/2023 Elevated troponin 06/21/2023 Sore throat (viral) 06/21/2023 Pneumonia due to COVID-19 virus 07/31/2020 Hyperthyroidism 07/31/2020 GERD (gastroesophageal reflux disease) 0 [...] as of this encounter (statuses as of 03/07/2024) Resolved Problems Problem Noted Date Diagnosed Date Resolved Date Acute respiratory failure with hypoxia 07/31/2020 08/14/2023 Morbid obesity due to excess calories 02/21/2020 06/20/2023 Encounter for examination fo r normal comparison and control in clinical research program 02/15/2018 04/13/2020 [facility] Study: Project # [id number], Videotape Sales Representative: Sid Hernandez, PhD. SUMMARY: Goal: Establish test [...] contact study staff at ; after hours Videotape Sales Representative via the [facility] hospital selvage machine operator . Please contact study team before resolving/deleting from patients problem list. Study phone number: [phone]. Diagnosis changed due to Research Module. Go to Snapshot for study details. Encounter for examination fo r normal comparison and control in clinical research program 02/15/2018 05/12/2022 Overview: DO NOT DELETE - [employer] DETECT Study: Project # [id number], Videotape Sales Representative: Jamal Dickinson, MS, MPH. SUMMARY: Goal: Establish [...] contact study staff at ; after hours Videotape Sales Representative via the [facility] hospital selvage machine operator . - Please contact study team before resolving/deleting from patients problem list. Study phone number: [phone]. Diagnosis changed due to Research Module. Go [...] as of this encounter (statuses as of 03/07/2024) Immunizations Name Administration Dates Next Due COVID-19 mRNA, LNP-s, No Pre serve, 2-Dose Series ([employer]) 07/28/2021 Pneumococcal Conjugate Vacc, 13 Valent (Prevnar) [...] 12/06/2022 022, 02/15/2018, 01/16/2017, Additional history exists GFR 09/04/2024 03/05/2024, 10/2023, 08/07/2023, Additional history exists CKD PHOS USE SMARTSET 37100 01/10/2025 050 10/2023, 06/21/2023, 03/23/2023, Additional history exists DXA Scan 03/01/2025 03/01/2018, 09/25/2001 CKD HGB USE SMARTSET 51327 03/05/202503/05, 01/11/2024, 08/07/2023, Additional history exists DTaP,Tdap,and Td Vaccines (2 - Td or Tdap) 04/01/2031 04/01/2021 Pneumococcal Vaccine: 65+ Years Completed 06/04/2020, 02/07/2019 Influenza Vaccine (FLU shot) Completed , 07/25/2022, 05/24/2021, Additional history exists GARDASIL-HPV IMMUNIZATION SERIES Aged Out No longer eligible based on patient's age to complete this topic Hepatitis B Aged Out No longer eligi ble based on patient's age to complete this topic MENINGOCOCCAL (MENACTRA/MENVEO) Aged Out No longer eligible based on patient's age to complete this topic documented as of this encounter Medical Devices Not on filedocumented as of this encounter Procedures Procedure Name Priority Date/Time Associated Diagnosis Comments CHEMISTRY-OUTSIDE Routine 03/05/2024 documented in this encounter Results * (ABNORMAL) CHEMISTRY-OUTSIDE (03/05/2024) Not all results display below - see scan for full detail OUTSIDE LAB (SEE SCANNED REPORT) Comment:SCAN INCLUDES - PREA DMISSION TESTING: PT, INR, PTT, CMP, UA, CBCD CREATININE-OUTSI DE LAB 1.20 0.6 - 1.2 MG/DL OUTSIDE LAB (SEE SCANNED REPORT) EGFR-OUTSIDE LAB 42.4 ML/MIN/1.73M 2 OUTSIDE LAB (SEE SCANNED REPORT) POTASSIUM-OUTSID E LAB 3.7 3.5 - 5.1 MMOL/L OUTSIDE LAB (SEE SCANNED REPORT) GLUCOSE-OUTSIDE LAB 99 70 - 99 MG/DL OUTSIDE LAB (SEE SCANNED REPORT) HOURS FASTING OUTSID E LAB (SEE SCANNED REPORT) TRIGLYCERIDES-OU TSIDE LAB OUTSIDE LAB (SEE SCANNED REPORT) CHOLESTEROL-OUTS RACQUEL LAB OUTSIDE LAB (SEE SCANNED REPORT) HDL-OUTSIDE LAB OUTS RACQUEL LAB (SEE SCANNED REPORT) CHOL/HDL RATIO-OUTSIDE LAB OUTSIDE LAB (SEE SCANNED REPORT) LDL (CALCULATED)-OUT SIDE LAB OUTSIDE LAB (SEE SCANNED REPORT) LDL (DIRECT MEASURE)-OUTSIDE LAB OUTSIDE LAB (SEE SCANNED REPORT) HEMOGLOBIN, Q5T-ZMECJUK LAB OUTSIDE LAB (SEE SCANNED REPORT) PHOSPHORUS-OUTSI DE LAB OUTSIDE LAB (SEE SCANNED REPORT) PTH-OUTSIDE LAB OUTS RACQUEL LAB (SEE SCANNED REPORT) MICROALBUMIN RATIO-OUTSIDE LAB OUTSIDE LAB (SEE SCANNED REPORT) PROTEIN, UA-OUTSIDE LAB NEGATIVE NEGATIVE OUTSIDE LAB (SEE SCANNED REPORT) HGB 10.3(A) 12.0 - 16.0 G/DL OUTSIDE LAB (SEE SCANNED REPORT) 03/05/2024 Parth Shukla MD LABORATORY OUTSIDE LAB (SEE SCANNED REPORT) documented in this encounter Advance Directives * [...] Power of Attor william? No Care Teams Aerial Applicator Pilot Relationship Specialty Start Date End Date Nathan Hernandez PA-C [address] [place] [id number] PCP - General Physician Field Operations Technician 08/14/23 documented as of this encounter
--- OUTSIDE RECORDS SUMMARY | 2024-04-11 12:35 | External Medical Summary | Summary of Care ---
Author Name Unknown Organization [facility] Address [address] [place] [address] Phone [phone] Care Team Providers Care Technician Automated Equipment Name Role Phone Nathan Hernandez PA-C Primary Care Provider [phone] Reason for Visit * Reason Comments Outpatient Testing Encounter Details Date Type Department Care Team ([facility] st Contact Info) Description 04/03/2024 1:30 PM EDT Laboratory Laboratory Patient Service [address] [phone] [address] Preop examination Allergies Active Allergy Reactions Criticality Noted Date Comments Codeine Nausea/vomiting 08/22/2014 Morphine And Codeine 08/31/2009 Upset stomach, vomiting Penicillins 05/29/2001 documented as of this encounter (statuses as of 04/03/2024) Medications Medication Sig Dispensed Refills Start Date [...] as of this encounter (statuses as of 04/03/2024) Active Problems Problem Noted Date Diagnosed Date [...] as of this encounter (statuses as of 04/03/2024) Resolved Problems Problem Noted Date Diagnosed Date Resolved Date COVID-19 virus infection 06/21/2023 Elevated troponin 06/21/2023 04/03/2024 Sore throat (viral) 06/21/2023 04/03/20 Acute respiratory failure with hypoxia 07/31/2020 08/14/2023 Pneumonia due to COVID-19 virus 07/31/2020 04/03/2024 Morbid obesity due to excess calories 02/21/2020 06/20/2023 Encounter for examination fo r normal comparison and control in clinical research program 02/15/2018 04/13/2020 Overview: DO NOT DELETE [facility] DETECT Study: Project # [id number], Community Dietitian: Sid Hernandez, PhD. SUMMARY: Goal: Establish test [...] contact study staff at ; after hours Community Dietitian via the [facility] hospital foundry operator . Please contact study team before resolving/deleting from patients problem list. Study phone number: [phone]. Diagnosis changed due to Research Module. Go to Snapshot for study details. Encounter for examination fo r normal comparison and control in clinical research program 02/15/2018 05/12/2022 Overview: DO NOT DELETE - [employer] DETECT Study: Project # [id number], Community Dietitian: Jmaal Dickinson, MS, MPH. SUMMARY: Goal: Establish test [...] contact study staff at ; after hours Community Dietitian via the [facility] hospital foundry operator . - Please contact study team before resolving/deleting from patients problem list. Study phone number: [phone]. Diagnosis changed due to Research Module. Go [...] as of this encounter (statuses as of 04/03/2024) Immunizations Name Administration Dates Next Due COVID-19 mRNA, LNP-s, No Pre serve, 2-Dose Series ([employer]) 07/28/2021 Pneumococcal Conjugate Vacc, 13 Valent (Prevnar) [...] as of this encounter Plan of Treatment Upcoming Encounters Date Type Department Care Team ([facility] st Contact Info) Description 04/08/2024 12:00 PM EDT Nurse Only Ancillary [address] [phone] [place], Nurse Gmg [address] [address] Pending Results Name Type Priority Associated Diagnoses Date /Time COMPREHENSIVE METABOLIC PANEL Lab Routine Preop examination 04/03/2024 1:42 PM EDT CBC WITH WBC DIFFERENTIAL AND ANEMIA REFLEX WORKUP Lab Routine Preop examination 04/03/2024 1:42 PM EDT ANEMIA CBC Lab Routine Preop examination 04/03/2024 1:42 PM EDT DIFFERENTIAL, AUTOMATED Lab Routine Preop examination 04/03/2024 1:42 PM EDT ANEMIA REFLEX CHEMISTRY HOLD Lab Routine Preop examination 04/03/2024 1:42 PM EDT Scheduled Procedures Name Priority Associated Diagnoses Date/Ti me ESOPHAGOGASTRODUODENOSCOPY ( EGD), FLEXIBLE, TRANSORAL, DIAGNOSTIC Recall Adenomatous duodenal polyp Health Maintenance Due Date Last Done Comments Zoster Vaccines (1 of 2) 1992 COVID-19 Vaccine (2 - Pfizer risk series) 08/18/2021 07/28/2021 Depression Screening 09/17/2021 09/17/2020 Albumin/Creatinine Ratio 12/06/202212/06/ 022, 02/15/2018, 01/16/2017, Additional history exists Influenza Vaccine (FLU shot) (#1) 2024 06/29/2023, 07/25/2022, 05/24/2021, Additional history exists GFR 09/04/2024 03/05/2024, 0 10/2023, 08/07/2023, Additional history exists CKD PHOS USE SMARTSET 79697 01/10/202510/2023, 06/21/2023, 03/23/2023, Additional history exists DXA Scan 03/01/2025 03/01/2018, 09/25/2001 CKD HGB USE SMARTSET 75586 03/05/202503/05, 01/11/2024, 08/07/2023, Additional history exists DTaP,Tdap,and [...] as of this encounter Visit Diagnoses Diagnosis Preop examination Preoperative examination, unspecified documented in [...] Power of Attor william? No Care Teams Technician Automated Equipment Relationship Specialty Start Date End Date Nathan Hernandez PA-C [address] [place] [id number] PCP - General Physician Statue Carver 08/14/23 documented as of this encounter
--- OUTSIDE RECORDS SUMMARY | 2024-04-11 12:35 | External Medical Summary ---
Author Name Unknown Address Unknown Organization [id number]:LABORATORY [facility] - [address] [place] [address] Laboratory Report Ordering Provider Test Date Status KEVIN MACIEL 04/03/2024 13:42:48 Final Observation Date Value Abnormality Reference (Units ) Status Iron 04/03/2024 13:42:48 57 33-151 (ug /dL) Final Iron-binding capacity 04/03/2024 13:42:48 250 250-425 (ug/dL) Final Transferrin Sat % 04/03/2024 13:42:48 23 15 -55 (%) Final Performing Location LABORATORY [facility] - [address] [place] [address]
--- OUTSIDE RECORDS SUMMARY | 2024-04-11 12:35 | External Medical Summary ---
Author Name Unknown Address Unknown Organization [id number]:[facility]ORY [facility] - [address] [facility] [address] [place] [address] Laboratory Report Ordering Provider Test Date Status KEVIN MACIEL 04/03/2024 13:42:48 Final Observation Date Value Abnormality Reference (Units ) Status WBC, Total 04/03/2024 13:42:48 7.02 4.00-10.8 0 (K/uL) Final RBC 04/03/2024 13:42:48 3.76 3.85-5.15 (M/uL) Final Hemoglobin 04/03/2024 13:42:48 11.4 Below low normal 12 .0-15.3 (g/dL) Final Anemia reflex testing trigge rs on a HGB < 12.0 for Females and HGB < 13.0 for Males in accordance with the WHO Anemia Guidelines
Anemia reflex testing triggers on a HGB < 12.0 for Females and HGB < 13.0 for Males in accordance with the WHO Anemia Guidelines HCT 04/03/2024 13:42:48 36.2 36.0-45.2 (%) Final MCV 04/03/2024 13:42:48 96.3 81.5-97.5 (fL) Final MCH 04/03/2024 13:42:48 30.3 27.0-34.0 (pg) Final MCHC 04/03/2024 13:42:48 31.5 32.0-36.0 (g/dL) Final RDW 04/03/2024 13:42:48 12.7 11.5-15.5 (%) Final Platelets 04/03/2024 13:42:48 240 140-400 (K /uL) Final MPV 04/03/2024 13:42:48 10.5 6.6-11.1 ( fL) Final Nucleated erythrocytes/100 leukocytes [Ratio] in Blood by Automated count 04/03/2024 13:42:48 0 <=0 (/100 WBCs) Fi community health Performing Location LABORATORY [facility] - [address] [facility] [address]
--- OUTSIDE RECORDS SUMMARY | 2024-04-11 12:35 | External Medical Summary | Summary of Care ---
Author Name Unknown Organization [facility] Address [address] [place] [address] Phone [phone] Care Team Providers Care Pin Drafter Operator Name Role Phone Nathan Hernandez PA-C Primary Care Provider [phone] Reason for Visit * Reason Comments EKG Blood Pressure Check Encounter Details Date Type Department Care Team ([facility] Contact Info) Description 04/08/2024 12:00 PM EDT Nurse Only Ancillary [address] [phone] [place], Nurse Gmg [address] [address] EKG; Blood Pressure Check Allergies Active Allergy [...] program 02/15/2018 04/13/2020 Overview: DO NOT DELETE [employer] DETECT Study: Project # [id number], Conservation Engineer: Sid Hernandez, PhD. SUMMARY: Goal: Establish [...] contact study staff at ; after hours Conservation Engineer via the [facility] hospital blender operator . Please contact study team before resolving/deleting from patients problem list. Study phone number: [phone]. Diagnosis changed due to Research Module. Go to Snapshot for study details. Encounter for examination fo r normal comparison and control in clinical research program 02/15/2018 05/12/2022 Overview: DO NOT DELETE - [employer] DETECT Study: Project # [id number], Conservation Engineer: Jamal Dickinson, MS, MPH. SUMMARY: Goal: [...] contact study staff at ; after hours Conservation Engineer via the [facility] hospital blender operator . - Please contact study team before resolving/deleting from patients problem list. Study phone number: [phone]. Diagnosis changed due to Research Module. Go [...] mRNA, LNP-s, No Pre serve, 2-Dose Series ([employer]) 07/28/2021 Pneumococcal Conjugate Vacc, 13 Valent (Prevnar) [...] Additional history exists CKD PHOS USE SMARTSET 38765 01/10/2025 05/0 10/2023, 06/21/2023, 03/23/2023, Additional history exists DXA Scan 03/01/2025 03/01/2018, 09/25/2001 CKD HGB USE SMARTSET 25545 04/03/202504/03, 04/03/2024, 03/05/2024, Additional history exists DTaP,Tdap,and [...] Power of Attor william? No Care Teams Pin Drafter Operator Relationship Specialty Start Date End Date Nathan Hernandez PA-C [address] [place], [place] [address]SUDHIR rodriguez [address] PCP - General Physician Pizza Baker 08/14/23 documented as of this encounter"
--- OUTSIDE RECORDS SUMMARY | 2024-04-11 12:35 | External Medical Summary ---
Author Name Unknown Address Unknown Organization K01[facility] [place] [address] [place] [address] Laboratory Report Ordering Provider Test Date Status KEVIN MACIEL 04/03/2024 13:42:48 Final Observation Date Value Abnormality Reference (Units ) Status Vitamin B12 04/03/2024 13:42:48 487 080-0908 (pg/mL) Final Performing Location [facility] [place] [address] [place] [address]
--- OUTSIDE RECORDS SUMMARY | 2024-04-11 12:35 | External Medical Summary ---
Author Name Unknown Address Unknown Organization [id number]:LABORATORY [facility] - [address] [place] [address] Laboratory Report Ordering Provider Test Date Status KEVIN MACIEL 04/03/2024 13:42:48 Final Observation Date Value Abnormality Reference (Units ) Status Ferritin 04/03/2024 13:42:48 279 Above high normal 13 -150 (ng/mL) Final Postmenopausal women have hi gher ferritin levels than pre-menopausal women. The above reference interval is based on pre-menopausal women. Performing Location LABORATORY [facility] - [address] [place] [address]
--- OUTSIDE RECORDS SUMMARY | 2024-04-11 12:35 | External Medical Summary ---
Author Name Unknown Address Unknown Organization K01:[facility] [place] [facility] - [address] [place] [place] [address] Laboratory Report Ordering Provider Test Date Status KEVIN MACIEL 04/03/2024 13:42:48 Final Observation Date Value Abnormality Reference (Units ) Status BUN 04/03/2024 13:42:48 28 Above high normal 6-20 (mg/dL) Final Creatinine 04/03/2024 13:42:48 1.4 Above high normal 0.5-1.0 (mg/dL) Final Glomerular filtration rate/1.73 sq M.predicted [Volume Rate/Area] in Serum, Plasma or Blood by Creatinine-based formula (CKD-EPI) 04/03/2024 13:42:48 39 Below low normal >=60 (mL/min) Final eGFR is calculated based on the CKD-EPI 2020 equation. Sodium 04/03/2024 13:42:48 141 135-146 (m mol/L) Final Potassium 04/03/2024 13:42:48 3.8 3.5-5.1 (m mol/L) Final Cl 04/03/2024 13:42:48 103 98-107 (mm ol/L) Final CO2 04/03/2024 13:42:48 26 22-32 (mmo l/L) Final Anion gap 04/03/2024 13:42:48 12 7-15 (mmol /L) Final Glucose 04/03/2024 13:42:48 95 70-120 (mg /dL) Final Albumin 04/03/2024 13:42:48 3.9 3.8-5.0 (g /dL) Final AST (Aspartate aminotransferase) 04/03/2024 13:42:48 18 10-35 (U/L) Fin al Alk Phos 04/03/2024 13:42:48 132 Above high normal 35 -130 (U/L) Final Bilirubin, Total 04/03/2024 13:42:48 0.3 <=1 .2 (mg/dL) Final Calcium 04/03/2024 13:42:48 9.0 8.4-10.2 ( mg/dL) Final Protein 04/03/2024 13:42:48 6.3 6.0-8.3 (g /dL) Final ALT (Alanine aminotransferase) 04/03/2024 13:42:48 9 Below low normal 10-35 (U/L) Final Performing Location LAB[facility]ORY [facility] [facility] - [facility] [address] [facility] [address]
[2024-04-11] MEDS ORDERED: PHENYLEPHRINE 100MCG/ML 10ML SYR IV ONE (13:11)
[2024-04-11] MEDS ORDERED: METOPROLOL TARTRATE 1 MG/ML VIAL IV ONE (13:11)
[2024-04-11] MEDS: TRANEXAMIC ACID 1,000 MG **IV Intra-op IV SCH (13:25)
[2024-04-11] MEDS: ROPIV 0.5% 246mg, Ketorolac 30mg, EPINEPHrine 0.5mg in NSS INFIL SCH (13:26)
--- NOTE | 2024-04-11 13:28 | Post Operative Brief Note ---
Immediate Post Op Note Date of Surgery April 11, 2024 Pre & Post Diagnosis Operation Date: 04/11/24 11:15 Pre-Op Diagnosis: Osteoarthritis Left Hip Post-Op Diagnosis: Osteoarthritis Left Hip I identified the patient and participated in the time-out.: Yes Procedure Operation Date: 04/11/24 11:15 Actual Procedures p Left Total Hip Replacement - Anterior Approach(Left) - Parth Shukla MD Surgeon Parth Shukla MD Applied Exercise Physiologist Tomas Anaya PA-C Estimated Blood Loss 100 Findings Consistent with Post-Op Diagnosis Drains Hemovac Drain
--- NOTE | 2024-04-11 13:53 | Fluoroscopy Report ---
FL hip LT 1V CLINICAL HISTORY: LET HIP ANTERIORleft hip arthroplasty COMPARISON STUDY: 07/28/2018 FLUOROSCOPY TIME: 14.6seconds FLUOROSCOPY IMAGES: 1 EXPOSURE DOSE: 1.6446 mGy FINDINGS: Left arthroplasty demonstrates satisfactory alignment. No acute fracture or unexpected opaq ue foreign body. IMPRESSION: Fluoroscopic assistance as above. ACT 112: Negative or not required by law. Electronically signed by: Vladimir Agosto M.D. 04/11/2024 1:52 PM
[2024-04-11] MEDS: fentaNYL citrate PF 100 MCG/2 ML VIAL IV PRN (14:00)
--- NOTE | 2024-04-11 14:49 | Anesthesiology Progress Note ---
Date of Service April 11, 2024 Anesthesia Post Procedure Vital Signs Vital Signs: Temp Pulse Resp BP Pulse Ox O2 Del Method 04/11/24 09:41 98.2 F 66 20 168/88 H 97 Room Air Pain Intensity Right Foot: Pain Intensity: 7 Transfer of Care Handoff Completed per policy Notes Mental Status: alert / awake / arousable and participated in evaluation Patient Amnestic to Procedure: Yes Nausea / Vomiting: adequately controlled Pain: adequately controlled Airway Patency, RR, SpO2: stable & adequate BP & HR: stable & adequate Hydration State: stable & adequate Neuraxial Anesthesia: was administered and sensory block is resolving Anesthetic Complications: no major complications apparent and Pt Satisfied with anesthetic care
[2024-04-11] MEDS ORDERED: MECLIZINE HCL 25 MG TAB PO PRN (15:41)
[2024-04-11] MEDS ORDERED: KETOCONAZOLE 2% CR 15 GM TUBE EXT PRN (15:41)
[2024-04-11] MEDS ORDERED: PANTOprazole 40 MG TAB PO PRN (15:41)
[2024-04-11] MEDS ORDERED: bisacodyL 10 MG SUPP PR PRN (15:41)
[2024-04-11] MEDS ORDERED: allopurinoL 300 MG TAB PO PRN (15:41)
[2024-04-11] MEDS ORDERED: NALOXONE HCL 0.4 MG/1 ML VIAL/CARP IV PRN (15:41)
[2024-04-11] MEDS ORDERED: METOCLOPRAMIDE HCL INJ 5 MG/ML 2 ML VIAL IV PRN (15:41)
[2024-04-11] MEDS: SODIUM CHLORIDE 0.9% 1,000 ML IV SCH (15:52)
--- NOTE | 2024-04-11 15:52 | Operative Report ---
Post Operative Report Pre & Post Diagnosis Operation Date: 04/11/24 11:15 Pre-Op Diagnosis: Osteoarthritis Left Hip Post-Op Diagnosis: Osteoarthritis Left Hip I identified the patient and participated in the time-out.: Yes Procedure Operation Date: 04/11/24 11:15 Actual Procedures p Left Total Hip Replacement - Anterior Approach(Left) - Parth Shukla MD Surgeon Parth Shukla MD Paint Tester Tomas Anaya PA-C Estimated Blood Loss 100 Findings Consistent with Post-Op Diagnosis Severe degenerative changes with chronically inflamed synovial lining complete loss of all weightbearing articular cartilage. Patient did have a fairly large subcutaneous fat layer. 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 Components used: [employer] Polar cemented hip system: Acetabulum size 48 with 25 mm dome screw and 32 mm highly cross-linked polyethylene liner. Femur size 1 standard offset with +432 mm Oxinium head. Description of Procedure Following satisfactory spinal anesthesia the patient was supine on the operating room table. The left leg was placed in the traction device in the right leg in the well-leg ernst. Positioning was confirmed with fluoroscopy. The leg was prepared with Betadine paint and alcohol wipes as the patient had a chlorhexidine allergy. Leg was draped sterilely. A surgical timeout was performed. A direct anterior approach was performed in the interval between the sartorius and tensor muscles. Again there was a fairly large subcutaneous fat layer. The circumflex femoral vessels were identified and coagulated. An anterior capsulotomy was performed exposing the arthritic femoral neck and head. Fluoroscopy was used to confirm femoral neck resection level which was completed and the arthritic femoral head was removed. The acetabular self-retaining retractor was placed. Acetabular preparation was completed with excision of labral and capsular tissue. The acetabulum was reamed under direct vision. A 48 shell was impacted into a healthy bed into a position of 35 to 40 degrees of abduction and 25 degrees of anteversion confirmed with fluoroscopy. A dome screw was placed followed by the polyethylene liner. Local anesthetic was placed and the wound was irrigated. Femur was placed into a position of external rotation extension and adduction. Femoral canal was identified and was prepared up to a size 1. A trial reduction with a standard offset neck and a +4 head trial was performed. Fluoroscopy showed very good fit and fill of the proximal canal good orientation of the components, and rastafari of leg length and offset at the level of the lesser trochanter. The hip was dislocated. The trial component removed. A cement restriction plug was placed. Third-generation cement technique was used to cement the size 1 standard stem using Boni Z be cement. When the cemented hardened the the hip was again placed through a trial reduction with a +4 head which showed similar findings as far as leg length offset and orientation of the components. The hip was dislocated 1 final time. The trial head removed. After irrigation the final 4 x 32 Oxinium head was placed and the hip reduced with fluoroscopy showing similar findings The wound was irrigated with 500 cc of experience irrigation. There was very little bleeding. The tensor fascia was closed with a running suture of 0 strata fix. The subcutaneous tissues after irrigation were closed in layers with 0 strata fix. Skin was closed with a running subcuticular stitch with 3 oh strata fix. Dermabond Prineo and a negative pressure wound dressing were applied. Patient was returned to her bed in stable condition. Note: Tomas PEGUERO was present and assisted throughout due to the complicated nature of this case. He help with preparation and set up, he diver assistant throughout. He assisted with hemostasis and exposure throughout the procedure. He also closed the fascial subcutaneous and skin layers and applied the postop dressing. I attest to the content of the Intraoperative Record and any orders documented therein. Any exceptions are noted below.
[2024-04-11] MEDS: GABAPENTIN 100 MG CAP PO SCH (16:58)
[2024-04-11] MEDS: ORTHO JOINT ANESTHETIC ONE (17:38)
[2024-04-11] MEDS: SENNA 8.6 MG TAB PO SCH (19:54)
[2024-04-11] MEDS: ASPIRIN 81 MG ECTAB PO SCH (19:54)
[2024-04-11] MEDS: DOCUSATE SODIUM 100 MG CAP PO SCH (19:54)
[2024-04-11] MEDS ORDERED: CeleBREX 200 MG CAP PO SCH (21:00)
[2024-04-12 06:36] LABS: Calcium 8.1 mg/dl (8.6-10.3); Potassium 4.2 mmol/L (3.5-5.1)
[2024-04-12 06:42] LABS: BUN Creatinine Ratio 20.7 (10-20); Est GFR (African American) 37.5 ml/min; Est GFR (Non-African American) 32.3 ml/min
--- NOTE | 2024-04-12 06:51 | Orthopedic Progress Note ---
Date of Service April 12, 2024 Assessment & Plan (1) Degenerative joint disease of left hip: Plan: Postop day 1 status post left uncemented total hip arthroplasty direct anterior. PT/OT protocols. Weightbearing as tolerated. DVT prophylaxis-aspirin p.o. twice daily, SCDs. Pain management as written. DC planning-patient is planning for [facility] facility/[facility] facility up in [place]. Case management to help arrange. Admission and Anticipated Discharge Date Admission Date: April 11, 2024 Subjective Patient sitting up in her chair at the bedside. No complaints this morning. She is comfortable. Pain is controlled. She was up to the bathroom this morning without difficulty. Physical Exam Physical Exam: Fariba dressing is clean, dry, and intact. Thigh has swelling but is soft and nontender. Calves are soft nontender. Neurovascular is intact. Toes are mobile. Results & Data Vital Signs (Past 12 Hours) Vital Signs Temp Pulse Resp BP Pulse Ox O2 Del Method 04/12/24 02:55 36.4 C L 65 16 172/70 H 95 Room Air 04/11/24 22:17 36.7 C 65 18 146/61 H 96 Room Air Laboratory Results Laboratory Results WBC Cancelled 04/12/24 05:50 RBC Cancelled 04/12/24 05:50 Hgb Cancelled 04/12/24 05:50 Hct Cancelled 04/12/24 05:50 MCV Cancelled 04/12/24 05:50 MCH Cancelled 04/12/24 05:50 MCHC Cancelled 04/12/24 05:50 RDW Std Deviation Cancelled 04/12/24 05:50 RDW Coeff of Darion Cancelled 04/12/24 05:50 Plt Count Cancelled 04/12/24 05:50 MPV Cancelled 04/12/24 05:50 Immature Gran % (Auto) Cancelled 04/12/24 05:50 Neut % (Auto) Cancelled 04/12/24 05:50 Lymph % (Auto) Cancelled 04/12/24 05:50 [place] % (Auto) Cancelled 04/12/24 05:50 Eos % (Auto) Cancelled 04/12/24 05:50 Baso % (Auto) Cancelled 04/12/24 05:50 Neut # (Auto) Cancelled 04/12/24 05:50 Lymph # (Auto) Cancelled 04/12/24 05:50 [place] # (Auto) Cancelled 04/12/24 05:50 Eos # (Auto) Cancelled 04/12/24 05:50 Baso # (Auto) Cancelled 04/12/24 05:50 Immature Gran # (Auto) Cancelled 04/12/24 05:50 Absolute Nucleated RBC Cancelled 04/12/24 05:50 Nucleated RBC % (auto) Cancelled 04/12/24 05:50 Neutrophils % (Manual) Cancelled 04/12/24 05:50 Band Neutrophils % Cancelled 04/12/24 05:50 Lymphocytes % (Manual) Cancelled 04/12/24 05:50 Prolymphocyte % Cancelled 04/12/24 05:50 Reactive Lymphs % (Man) Cancelled 04/12/24 05:50 Monocytes % (Manual) Cancelled 04/12/24 05:50 Eosinophils % (Manual) Cancelled 04/12/24 05:50 Basophils % (Manual) Cancelled 04/12/24 05:50 Metamyelocytes % (Man) Cancelled 04/12/24 05:50 Myelocytes % (Man) Cancelled 04/12/24 05:50 Promyelocytes % (Man) Cancelled 04/12/24 05:50 Blast Cells % (Manual) Cancelled 04/12/24 05:50 Plasma Cell % (Manual) Cancelled 04/12/24 05:50 Other Cells % Cancelled 04/12/24 05:50 Nucleated RBC % Cancelled 04/12/24 05:50 Neutrophils # (Manual) Cancelled 04/12/24 05:50 Band Neutrophils # Cancelled 04/12/24 05:50 Total Absolute Neuts Cancelled 04/12/24 05:50 Lymphocytes # (Manual) Cancelled 04/12/24 05:50 Prolymphocyte # Cancelled 04/12/24 05:50 Reactive Lymphs # Cancelled 04/12/24 05:50 Total Abs Lymphocytes Cancelled 04/12/24 05:50 Monocytes # (Manual) Cancelled 04/12/24 05:50 Eosinophils # (Manual) Cancelled 04/12/24 05:50 Basophils # (Manual) Cancelled 04/12/24 05:50 Metamyelocytes # (Man) Cancelled 04/12/24 05:50 Myelocytes # (Manual) Cancelled 04/12/24 05:50 Promyelocytes # (Man) Cancelled 04/12/24 05:50 Blast Cells # (Man) Cancelled 04/12/24 05:50 Plasma Cell # (Manual) Cancelled 04/12/24 05:50 Other Cells # Cancelled 04/12/24 05:50 Nucleated RBCs # (Man) Cancelled 04/12/24 05:50 Hypersegmented Neuts Cancelled 04/12/24 05:50 Hyposegmented Neuts Cancelled 04/12/24 05:50 Hypogranular Neuts Cancelled 04/12/24 05:50 Large Granular Lymphs Cancelled 04/12/24 05:50 # Lrg Granular Lymphs Cancelled 04/12/24 05:50 Hairy Cells Cancelled 04/12/24 05:50 Smudge Cells Cancelled 04/12/24 05:50 Toxic Granulation Cancelled 04/12/24 05:50 Toxic Vacuolation Cancelled 04/12/24 05:50 Dohle Bodies Cancelled 04/12/24 05:50 Federico Rods Cancelled 04/12/24 05:50 Platelet Estimate Cancelled 04/12/24 05:50 Hypogranular Platelets Cancelled 04/12/24 05:50 Giant Platelets Cancelled 04/12/24 05:50 Platelet Satelliting Cancelled 04/12/24 05:50 RBC Morphology Cancelled 04/12/24 05:50 Polychromasia Cancelled 04/12/24 05:50 Hypochromasia Cancelled 04/12/24 05:50 Poikilocytosis Cancelled 04/12/24 05:50 Basophilic Stippling Cancelled 04/12/24 05:50 Anisocytosis Cancelled 04/12/24 05:50 Microcytosis Cancelled 04/12/24 05:50 Macrocytosis Cancelled 04/12/24 05:50 Spherocytes Cancelled 04/12/24 05:50 Pappenheimer Bodies Cancelled 04/12/24 05:50 Sickle Cells Cancelled 04/12/24 05:50 Target Cells Cancelled 04/12/24 05:50 Tear Drop Cells Cancelled 04/12/24 05:50 Ovalocytes Cancelled 04/12/24 05:50 Stomatocytes Cancelled 04/12/24 05:50 [place] Bodies Cancelled 04/12/24 05:50 Echinocytes Cancelled 04/12/24 05:50 Acanthocytes (Spur) Cancelled 04/12/24 05:50 Rouleaux Cancelled 04/12/24 05:50 RBC Agglutinates Cancelled 04/12/24 05:50 Schistocytes Cancelled 04/12/24 05:50 Sezary Cell Cancelled 04/12/24 05:50 Sodium 135 mmol/L (136-145) L 04/12/24 05:50 Potassium 4.2 mmol/L (3.5-5.1) 04/12/24 05:50 Chloride 105 mmol/L (98-107) 04/12/24 05:50 Carbon Dioxide 22 mmol/L (21-32) 04/12/24 05:50 Anion Gap 8 (3-11) 04/12/24 05:50 BUN 31 mg/dl (6-23) H 04/12/24 05:50 Creatinine 1.50 mg/dl (0.6-1.2) H 04/12/24 05:50 Est Cr Clr Drug Dosing 36.0 ml/min 04/12/24 05:50 Est GFR ( Amer) 37.5 ml/min 04/12/24 05:50 Est GFR (Non-Af Amer) 32.3 ml/min 04/12/24 05:50 BUN/Creatinine Ratio 20.7 (10-20) H 04/12/24 05:50 Glucose 131 mg/dl (70-99(Fasting)) H 04/12/24 05:50 Calcium 8.1 mg/dl (8.6-10.3) L 04/12/24 05:50 Blood Parasites ID Cancelled 04/12/24 05:50 Impressions Hip X-Ray 04/11/24 11:15 FL hip LT 1V CLINICAL HISTORY: LET HIP ANTERIORleft hip arthroplasty COMPARISON STUDY: 07/28/2018 FLUOROSCOPY TIME: 14.6seconds FLUOROSCOPY IMAGES: 1 EXPOSURE DOSE: 1.6446 mGy FINDINGS: Left arthroplasty demonstrates satisfactory alignment. No acute fracture or unexpected opaque foreign body. IMPRESSION: Fluoroscopic assistance as above. ACT 112: Negative or not required by law. Electronically signed by: Vladimir Agosto M.D. 04/11/2024 1:52 PM
[2024-04-12] MEDS: amLODIPine BESYLATE 5 MG TAB PO SCH (07:58)
[2024-04-12] MEDS: methIMAzole 5 MG TABLET PO SCH (07:59)
[2024-04-12] MEDS: MULTIVITAMIN TAB PO SCH (07:59)
[2024-04-12] MEDS: hydroCHLOROthiazide 25 MG TAB PO SCH (08:00)
[2024-04-12] MEDS: VALSARTAN 80 MG TAB PO SCH (08:00)
[2024-04-12 08:52] LABS: Basophils # (auto) 0.02 K/uL (0.00-0.20); Basophils % (auto) 0.1 %; Hematocrit (blood only) 28.6 % (37.0-47.0); Hemoglobin 9.4 g/dl (12.0-16.0); Immature Granulocytes # (auto) 0.05 K/uL (0.01-0.20); Immature Granulocytes % (auto) 0.4 %; Lymphocytes # (auto) 1.05 K/uL (1.20-3.40); Lymphocytes % (auto) 7.7 %; Mean Corpuscular Hemoglobin 29.7 pg (25.0-34.0); Mean Corpuscular Hgb Conc 32.9 g/dL (32.0-36.0); Mean Corpuscular Volume 90.2 fL (80.0-100.0); Mean Platelet Volume 9.6 fL (9.4-12.4); Monocytes # (auto) 0.37 K/uL (0.11-0.59); Monocytes % (auto) 2.7 %; Neutrophils # (auto) 12.13 K/uL (1.40-6.50); Neutrophils % (auto) 89.1 %; Platelet Count 237 K/uL (130-400); RDW Coefficient of Variation 12.4 % (11.5-14.5); Red Blood Count 3.17 M/uL (4.20-5.40); White Blood Count 13.62 K/ul (4.8-10.8)
[2024-04-12] MEDS: traMADol HCL 50 MG TABLET PO PRN (12:16)
[2024-04-13 07:50] LABS: Basophils # (auto) 0.05 K/uL (0.00-0.20); Basophils % (auto) 0.8 %; Eosinophils # (auto) 0.12 K/uL (0.00-0.50); Eosinophils % (auto) 1.8 %; Hematocrit (blood only) 25.7 % (37.0-47.0); Hemoglobin 8.4 g/dl (12.0-16.0); Immature Granulocytes # (auto) 0.03 K/uL (0.01-0.20); Immature Granulocytes % (auto) 0.5 %; Lymphocytes # (auto) 1.02 K/uL (1.20-3.40); Lymphocytes % (auto) 15.5 %; Mean Corpuscular Hemoglobin 29.4 pg (25.0-34.0); Mean Corpuscular Hgb Conc 32.7 g/dL (32.0-36.0); Mean Corpuscular Volume 89.9 fL (80.0-100.0); Mean Platelet Volume 9.6 fL (9.4-12.4); Monocytes # (auto) 0.44 K/uL (0.11-0.59); Monocytes % (auto) 6.7 %; Neutrophils # (auto) 4.93 K/uL (1.40-6.50); Neutrophils % (auto) 74.7 %; Platelet Count 218 K/uL (130-400); RDW Coefficient of Variation 12.8 % (11.5-14.5); RDW Standard Deviation 41.8 fL (36.4-46.3); Red Blood Count 2.86 M/uL (4.20-5.40); White Blood Count 6.59 K/ul (4.8-10.8)
--- NOTE | 2024-04-13 08:06 | Orthopedic Progress Note ---
Date of Service April 13, 2024 Assessment & Plan (1) Degenerative joint disease of left hip: Plan: Postop day 2 status post left uncemented total hip arthroplasty direct anterior. PT/OT protocols. Weightbearing as tolerated. DVT prophylaxis-aspirin p.o. twice daily, SCDs. Pain management as written. Mild hypoxia during the night question related to sleep apnea. Patient remaining well oxygenated during her visit. Nursing staff will follow her O2 sats during the day. If she drops down into the mid 80s again, we will consider medical consult. Continue to encourage incentive spirometry. Acute blood loss anemia-patient was anemic prior to surgery at 10.3 hemoglobin. She has not dropped down to 8.4. We will recheck her hemoglobin in the morning. Currently she is asymptomatic. DC planning-patient is planning for skilled facility/[facility] facility up in [place]. Patient will need a 3 night stay before being transferred. [facility] by Monday. Admission and Anticipated Discharge Date Admission Date: April 12, 2024 Subjective Postop day 2 status post left total hip arthroplasty direct anterior. Patient is up sitting in her chair. It was noted that she was on 2 L of O2. She had dropped down into the mid 80s during the night and was placed on oxygen. This morning oxygen was removed with nursing present and patient was maintaining her oxygenation is in the low 90s. She did have an episode of dropping down to 88 but with deep breathing she came right back up to mid 90s. She remained there during her stay. Patient stating she is having a little more discomfort in the thigh today but otherwise has no other complaints. Denies shortness of breath. Physical Exam Physical Exam: Fariba dressing is clean, dry, and intact. Left thigh swelling consistent with surgery. Thigh is soft and nontender. Calves are soft and nontender. Neurovascular is intact. Toes are mobile. Left hip appears located. Results & Data Vital Signs (Past 12 Hours) Vital Signs Temp Pulse Resp BP Pulse Ox O2 Del Method O2 Flow Rate 04/13/24 07:45 Room Air 04/13/24 07:25 37.4 C 57 L 16 121/68 95 Nasal Cannula 2 04/12/24 22:00 Room Air Laboratory Results 04/13/24 04/12/24 Range/Units 07:32 08:27 WBC 6.59 13.62 H (4.8-10.8) K/ul RBC 2.86 L 3.17 L (4.20-5.40) M/uL Hgb 8.4 L 9.4 L (12.0-16.0) g/dl Hct 25.7 L 28.6 L (37.0-47.0) % MCV 89.9 90.2 (80.0-100.0) fL MCH 29.4 29.7 (25.0-34.0) pg MCHC 32.7 32.9 (32.0-36.0) g/dL RDW Std Deviation 41.8 41.0 (36.4-46.3) fL RDW Coeff of Darion 12.8 12.4 (11.5-14.5) % Plt Count 218 237 (130-400) K/uL MPV 9.6 9.6 (9.4-12.4) fL Immature Gran % (Auto) 0.5 0.4 % Neut % (Auto) 74.7 89.1 % Lymph % (Auto) 15.5 7.7 % [place] % (Auto) 6.7 2.7 % Eos % (Auto) 1.8 0.0 % Baso % (Auto) 0.8 0.1 % Neut # (Auto) 4.93 12.13 H (1.40-6.50) K/uL Lymph # (Auto) 1.02 L 1.05 L (1.20-3.40) K/uL [place] # (Auto) 0.44 0.37 (0.11-0.59) K/uL Eos # (Auto) 0.12 0.00 (0.00-0.50) K/uL Baso # (Auto) 0.05 0.02 (0.00-0.20) K/uL Immature Gran # (Auto) 0.03 0.05 (0.01-0.20) K/uL
[2024-04-14] MEDS: MAGNESIUM HYDROXIDE SUSP 30 ML UDC PO PRN (05:32)
[2024-04-14 05:51] LABS: Basophils # (auto) 0.04 K/uL (0.00-0.20); Basophils % (auto) 0.6 %; Eosinophils # (auto) 0.23 K/uL (0.00-0.50); Eosinophils % (auto) 3.5 %; Hematocrit (blood only) 23.6 % (37.0-47.0); Hemoglobin 7.9 g/dl (12.0-16.0); Immature Granulocytes # (auto) 0.02 K/uL (0.01-0.20); Immature Granulocytes % (auto) 0.3 %; Lymphocytes # (auto) 1.69 K/uL (1.20-3.40); Lymphocytes % (auto) 25.8 %; Mean Corpuscular Hemoglobin 29.7 pg (25.0-34.0); Mean Corpuscular Hgb Conc 33.5 g/dL (32.0-36.0); Mean Corpuscular Volume 88.7 fL (80.0-100.0); Mean Platelet Volume 9.8 fL (9.4-12.4); Monocytes # (auto) 0.54 K/uL (0.11-0.59); Monocytes % (auto) 8.2 %; Neutrophils # (auto) 4.04 K/uL (1.40-6.50); Neutrophils % (auto) 61.6 %; Platelet Count 203 K/uL (130-400); RDW Coefficient of Variation 13.1 % (11.5-14.5); RDW Standard Deviation 41.9 fL (36.4-46.3); Red Blood Count 2.66 M/uL (4.20-5.40); White Blood Count 6.56 K/ul (4.8-10.8)
[2024-04-14 06:17] LABS: RBC Morphology Unremarkable
[2024-04-14 06:22] LABS: BUN Creatinine Ratio 26.8 (10-20); Calcium 8.2 mg/dl (8.6-10.3); Creatinine Clr Calc Pharmacy 42.5 ml/min; Est GFR (African American) 45.8 ml/min; Est GFR (Non-African American) 39.5 ml/min; Potassium 3.8 mmol/L (3.5-5.1)
--- NOTE | 2024-04-14 08:02 | Orthopedic Progress Note ---
Date of Service April 14, 2024 Assessment & Plan (1) Degenerative joint disease of left hip: Plan: Postop day 3 status post left uncemented total hip arthroplasty direct anterior. PT/OT protocols. Weightbearing as tolerated. DVT prophylaxis-aspirin p.o. twice daily, SCDs. Pain management as written. Mild hypoxia Noted earlier yesterday. Appears resolved. Continue to encourage incentive spirometry. Acute blood loss anemia-patient was anemic prior to surgery at 10.3 hemoglobin. She has dropped down to 8.4 Yesterday and is 7.9 today. Appears to be stabilizing but we will recheck tomorrow morning. Patient currently asymptomatic. DC planning-patient is planning for skilled facility/[facility] facility up in [place]. Patient will need a 3 night stay before being transferred. plan for transfer to [facility] by Monday. Admission and Anticipated Discharge Date Admission Date: April 12, 2024 Subjective Postop day 3 patient is sitting in her chair at the bedside. No complaints this morning. Pain is controlled. Denies shortness of breath, chest pain, lightheadedness. Overall she states she feels well. Her O2 saturation levels have been maintaining in the 90s on room air. Physical Exam Physical Exam: Fariba dressing is clean, dry, and intact. Thigh has swelling consistent with surgery. Thigh is soft and nontender. Calves are soft nontender. Neurovascular is intact. Toes are mobile. She has good dorsiflexion and plantarflexion of the left foot. Leg lengths appear equal. Results & Data Vital Signs (Past 12 Hours) Vital Signs Temp Pulse Resp BP BP Pulse Ox O2 Del Method 04/14/24 07:14 37.1 C 61 18 114/69 93 Room Air 04/14/24 06:44 37.0 C 75 16 179/76 H 94 Room Air 04/13/24 20:48 37.8 C H 75 16 148/90 H 94 Room Air 04/13/24 20:45 Room Air Laboratory Results 04/14/24 Range/Units 05:23 WBC 6.56 (4.8-10.8) K/ul RBC 2.66 L (4.20-5.40) M/uL Hgb 7.9 L (12.0-16.0) g/dl Hct 23.6 L (37.0-47.0) % MCV 88.7 (80.0-100.0) fL MCH 29.7 (25.0-34.0) pg MCHC 33.5 (32.0-36.0) g/dL RDW Std Deviation 41.9 (36.4-46.3) fL RDW Coeff of Darion 13.1 (11.5-14.5) % Plt Count 203 (130-400) K/uL MPV 9.8 (9.4-12.4) fL Immature Gran % (Auto) 0.3 % Neut % (Auto) 61.6 % Lymph % (Auto) 25.8 % [place] % (Auto) 8.2 % Eos % (Auto) 3.5 % Baso % (Auto) 0.6 % Neut # (Auto) 4.04 (1.40-6.50) K/uL Lymph # (Auto) 1.69 (1.20-3.40) K/uL [place] # (Auto) 0.54 (0.11-0.59) K/uL Eos # (Auto) 0.23 (0.00-0.50) K/uL Baso # (Auto) 0.04 (0.00-0.20) K/uL Immature Gran # (Auto) 0.02 (0.01-0.20) K/uL RBC Morphology Unremarkable Sodium 135 L (136-145) mmol/L Potassium 3.8 (3.5-5.1) mmol/L Chloride 103 (98-107) mmol/L Carbon Dioxide 25 (21-32) mmol/L Anion Gap 7 (3-11) BUN 34 H (6-23) mg/dl Creatinine 1.27 H (0.6-1.2) mg/dl Est Cr Clr Drug Dosing 42.5 ml/min Est GFR ( Amer) 45.8 ml/min Est GFR (Non-Af Amer) 39.5 ml/min BUN/Creatinine Ratio 26.8 H (10-20) Glucose 99 (70-99(Fasting)) mg/dl Calcium 8.2 L (8.6-10.3) mg/dl
[2024-04-15 06:11] LABS: Basophils # (auto) 0.06 K/uL (0.00-0.20); Basophils % (auto) 0.8 %; Eosinophils # (auto) 0.21 K/uL (0.00-0.50); Eosinophils % (auto) 2.7 %; Hematocrit (blood only) 26.3 % (37.0-47.0); Hemoglobin 8.8 g/dl (12.0-16.0); Immature Granulocytes # (auto) 0.04 K/uL (0.01-0.20); Immature Granulocytes % (auto) 0.5 %; Lymphocytes # (auto) 2.67 K/uL (1.20-3.40); Lymphocytes % (auto) 34.1 %; Mean Corpuscular Hemoglobin 29.9 pg (25.0-34.0); Mean Corpuscular Hgb Conc 33.5 g/dL (32.0-36.0); Mean Corpuscular Volume 89.5 fL (80.0-100.0); Mean Platelet Volume 9.7 fL (9.4-12.4); Monocytes # (auto) 0.52 K/uL (0.11-0.59); Monocytes % (auto) 6.6 %; Neutrophils # (auto) 4.34 K/uL (1.40-6.50); Neutrophils % (auto) 55.3 %; Platelet Count 235 K/uL (130-400); RDW Standard Deviation 42.3 fL (36.4-46.3); Red Blood Count 2.94 M/uL (4.20-5.40); White Blood Count 7.84 K/ul (4.8-10.8)
[2024-04-15 06:31] LABS: BUN Creatinine Ratio 24.4 (10-20); Calcium 8.6 mg/dl (8.6-10.3); Creatinine Clr Calc Pharmacy 43.9 ml/min; Est GFR (African American) 47.6 ml/min; Est GFR (Non-African American) 41.1 ml/min; Potassium 3.9 mmol/L (3.5-5.1)
--- NOTE | 2024-04-15 09:14 | Orthopedic Progress Note ---
Date of Service April 15, 2024 Assessment & Plan (1) Degenerative joint disease of left hip: Plan: Postop day 3 status post left uncemented total hip arthroplasty direct anterior. PT/OT protocols. Weightbearing as tolerated. DVT prophylaxis-aspirin p.o. twice daily, SCDs. Pain management as written. Mild hypoxia- resolved; continue to encourage incentive spirometry. Acute blood loss anemia - Stable at this time. This morning's hemoglobin was 8.8. Patient essentially asymptomatic at this time. Mild hyponatremia at 134 this morning. Mildly elevated creatinine continues to resolve and is 1.23 this morning. IN planning-patient is planning for skilled facility/[facility] facility up in [place]. 3 night stay completed. Plan for discharge hopefully today once arrangements are made. Admission and Anticipated Discharge Date Admission Date: April 12, 2024 Subjective Postop day 4 patient sitting up in her chair at the bedside. Patient states that she was feeling somewhat cold this morning but is better now. She has no complaints other than some mild thigh pain. She states that she has no shortness of sary ath, chest pain, lightheadedness. She does not feel wiped out or tired. She does have a little bit of cold intolerance at this point in time. No other complaints at this time. Physical Exam Physical Exam: Fariba dressing is clean, dry, and intact. Functioning properly. Thigh swollen consistent with surgery but soft and nontender. Calves are soft nontender. No gross motor or sensory loss seen at this time. Leg lengths appear equal. Results & Data Vital Signs (Past 12 Hours) Vital Signs Temp Pulse Resp BP Pulse Ox O2 Del Method 04/15/24 07:59 36.8 C 70 16 145/72 H 95 Room Air Laboratory Results 04/15/24 Range/Units 05:34 WBC 7.84 (4.8-10.8) K/ul RBC 2.94 L (4.20-5.40) M/uL Hgb 8.8 L (12.0-16.0) g/dl Hct 26.3 L (37.0-47.0) % MCV 89.5 (80.0-100.0) fL MCH 29.9 (25.0-34.0) pg MCHC 33.5 (32.0-36.0) g/dL RDW Std Deviation 42.3 (36.4-46.3) fL RDW Coeff of Darion 13.0 (11.5-14.5) % Plt Count 235 (130-400) K/uL MPV 9.7 (9.4-12.4) fL Immature Gran % (Auto) 0.5 % Neut % (Auto) 55.3 % Lymph % (Auto) 34.1 % [place] % (Auto) 6.6 % Eos % (Auto) 2.7 % Baso % (Auto) 0.8 % Neut # (Auto) 4.34 (1.40-6.50) K/uL Lymph # (Auto) 2.67 (1.20-3.40) K/uL [place] # (Auto) 0.52 (0.11-0.59) K/uL Eos # (Auto) 0.21 (0.00-0.50) K/uL Baso # (Auto) 0.06 (0.00-0.20) K/uL Immature Gran # (Auto) 0.04 (0.01-0.20) K/uL Sodium 134 L (136-145) mmol/L Potassium 3.9 (3.5-5.1) mmol/L Chloride 100 (98-107) mmol/L Carbon Dioxide 27 (21-32) mmol/L Anion Gap 7 (3-11) BUN 30 H (6-23) mg/dl Creatinine 1.23 H (0.6-1.2) mg/dl Est Cr Clr Drug Dosing 43.9 ml/min Est GFR ( Amer) 47.6 ml/min Est GFR (Non-Af Amer) 41.1 ml/min BUN/Creatinine Ratio 24.4 H (10-20) Glucose 102 H (70-99(Fasting)) mg/dl Calcium 8.6 (8.6-10.3) mg/dl
== END 2024-04-15 12:45 | DRG 470 ==
LOC: 3E 08:53 → ASU 08:53